=== PATIENT | female | born 1935 | race Caucasian/White ===

== ENCOUNTER 2022-06-16 13:17 | Inpatient (IN) | payer MEDICARE, SELFPAY ==
[2022-06-16] VITALS (18 sets, daily range): BP systolic 98–117; BP diastolic 59–85; PULSE 72–140; RESP 15–25; TEMP 36–36.9; O2SAT 93–98; BMI 22.7; BMI 21.7
--- NOTE | 2022-06-16 13:22 | EKG12_ITS ---
Test Reason : STROKE TEAM Blood Pressure : / mmHG Vent. Rate : 117 BPM Atrial Rate : 357 BPM P-R Int : 000 ms QRS Dur : 076 ms QT Int : 318 ms P-R-T Axes : 000 010 -79 degrees QTc Int : 443 ms Atrial flutter with variable A-V block Nonspecific ST and T wave abnormality Abnormal ECG Confirmed by TATA WOOD, TOMASA ([id number]), society editor PANCHO PEREZ ([id number]) on 06/17/2022 2:40:15 PM Referred By: Confirmed By:TOMASA PAYTON MD
--- NOTE | 2022-06-16 13:22 | CT_ITS ---
We are attempting to reach an attending provider to discuss findings. An addendum with communication details will be sent when the communication is complete. STUDY: CTA HEAD AND NECK WITH CONTRAST REASON FOR EXAM: Female, 86 years old. Neuro deficit, acute, stroke suspected RADIATION DOSAGE (If Supplied By Facility): CTDIvol = ( 28.91 ) mGy, DLP = ( 596.70 ) mGycm TECHNIQUE: CT angiography was performed with a multi-detector CT scanner. Data acquisition was obtained from the skull base through the vertex following intravenous administration of IV 100mL Isovue-370. MIP images were reconstructed from the axial data set. Post-processing of the angiographic images was performed, with multiplanar reformation and 3D reconstruction. Individualized dose optimization techniques were used for this CT. COMPARISON: No relevant priors. FINDINGS: Normal bilateral petrous carotid arteries. Normal right cavernous carotid artery with a normal supraclinoid bifurcation. Normal left cavernous carotid artery with a normal supraclinoid bifurcation. Normal right A1 segment of the anterior cerebral artery. Normal left A1 segment of the anterior cerebral artery. Normal intact anterior communicating artery (ACOM). Normal bilateral A2 segments of the anterior cerebral arteries. Normal right M and M2 segments of the middle cerebral arteries, with a normal M1 bifurcation. Normal left M1 and M2 segments of the middle cerebral arteries, with a normal M1 bifurcation. No visible right posterior communicating artery (PCOM). No visible left posterior communicating artery (PCOM). Normal bilateral codominant vertebral arteries. Normal basilar artery with a normal basilar bifurcation. The visualized bilateral superior cerebellar (SCA) arteries are normal. Normal bilateral P1, P2 and visualized P3 segments of the posterior cerebral arteries. There is no demonstrated aneurysm of the [place]. There is no demonstrated abnormality of the visualized brain. AORTIC ARCH: Normal visualized aortic arch. Normal origins of the brachiocephalic, left common carotid, and left subclavian arteries. RIGHT CAROTID ARTERIES: Normal right common carotid artery (CCA). Normal right carotid bulb. Normal origin of the right internal carotid (ICA) artery without a hemodynamically significant stenosis. Normal visualized cervical portion of the right internal carotid artery. Normal origin of the right external carotid artery (ECA). LEFT CAROTID ARTERIES: Normal left common carotid artery (CCA). Normal left carotid bulb. Normal origin of the left internal carotid (ICA) artery without a hemodynamically significant stenosis. Normal visualized cervical portion of the left internal carotid artery. Normal origin of the left external carotid artery (ECA). VERTEBRAL ARTERIES: Normal bilateral vertebral arteries. CT/STROKE CTA Head AND Neck W/Con IMPRESSION: Normal CTA Head and neck with contrast. COMMENT: Incidental prominent mucous retention cyst in the left maxillary sinus and tiny hypodense nodule in the right thyroid lobe. No follow-up is needed. Electronically Signed: Krael Espana MD at 13:48 EST ,
--- NOTE | 2022-06-16 13:22 | CT_ITS ---
EXAM: CT HEAD WITHOUT INTRAVENOUS CONTRAST CLINICAL INDICATION: Neuro deficit, acute, stroke suspected TECHNIQUE: Multiple axial images were obtained of the head without intravenous contrast. This CT exam was performed using one or more of the following dose reduction techniques: automated exposure control, adjustment of the mA and/or kV according to patient size, and/or use of iterative reconstruction technique. This report was created using [id number] report generation technology. RADIATION DOSE: CTDIvol = 44.99 mGy, DLP = 846.73 mGy-cm COMPARISON: MRI brain without contrast 09/25/2015. FINDINGS: BRAIN AND EXTRA-AXIAL SPACES: Focal encephalomalacia in the right parietal lobe corresponding to the tract of the shunt tube. Hypodensities in the white matter of both cerebral hemispheres are chronic white matter ischemic changes. No intra- or extra-axial hemorrhage. BONES/JOINTS: Unremarkable. No discrete lytic or blastic abnormalities. SINUSES: Unremarkable as visualized. Clear. MASTOID AIR CELLS: Unremarkable. Clear. ORBITS: Visualized globes, extraocular muscles, optic nerves and retrobulbar fat appear unremarkable. TUBES, LINES AND DEVICES: Right parietal MICROSOFT OFFICE INSTRUCTOR shunt crosses the midline and terminates in the frontal horn of the left lateral ventricle near the foramen of bone growth. CT/STROKE Brain/Head without Cont IMPRESSION: 1. No CT evidence of intracranial bleeding, acute ischemic infarct or acute intracranial abnormality. 2. Chronic white matter ischemic changes in both cerebral hemispheres without suspicious of MICROSOFT OFFICE INSTRUCTOR shunt malfunction. 3. Right parietal MICROSOFT OFFICE INSTRUCTOR shunt placement is the only new finding since MRI of brain of 09/25/2015. N.B. : The above Results were Read Back by Karel Espana MD to Julio Cesar Mcguire MD, MD, and understanding confirmed on 06/16/2022 13:41:21 (ET). Electronically Signed: Karel sEpana MD at 13:43 EST ,
[2022-06-16 13:30] LABS: Absolute Lymphocyte Count 1.25 X10^3/uL (0.83-4.51); Absolute Neutrophil Count 3.9 X10^3/uL (2.0-7.7); Basophil# 0.02 X10^3/uL; Basophil% 0.3 % (0-1); Eosinophil# 0.22 X10^3/uL; Eosinophils% 3.6 % (0-5); Hematocrit 38.1 % (37-47); Hemoglobin 12.4 g/dL (12.0-15.0); Lymphocyte # 1.25 X10^3/ul (0.83-4.51); Lymphocyte % 20.7 % (19-41); Mean Corp Hgb Conc 32.5 g/dL (32-36); Mean Corpuscular Hgb 30.9 pg (27.0-32.0); Mean Platelet Vol. 11.6 fl (6.2-12.0); Monocyte# 0.66 X10^3/uL; Monocyte% 10.9 % (0-10); NRBC Flagged by Analyzer 0 % (0-5); Neutrophil # 3.87 X10^3/uL (2.7-7.7); Neutrophil % 64.2 % (47-70); Platelet Count 264 K/mm3 (150-450); RBC Distribution Width CV 13.4 % (11.6-14.6); Red Blood Count 4.01 M/mm3 (4.2-5.4)
--- NOTE | 2022-06-16 13:31 | CM.ED ---
SW Note Referral Source: Case Find Referral Reason: Stroke alert SW responded to stroke alert. SW met with and provided emotional support. SW remains available if needs arise. Plan: Emotional support Amy PASTOR
[2022-06-16 13:38] LABS: International Normalized Ratio 1.2; Partial Thromboplast Time 32.2 Seconds (24.1-36.2); Prothrombin Time (Protime)PT. 14.8 SECONDS (11.7-14.9)
[2022-06-16 13:51] LABS: Anion Gap 7 (5-15); BUN 9 mg/dL (7-18); BUN/Creat Ratio 12.6 RATIO (10-20); Chloride 110 mmol/L (98-107); Creatinine, Serum 0.72 mg/dL (0.55-1.02); EST Glomerular Filtration Rate 82 mL/min (>60); Est Glom Filt Rate - Afr Amer 100 mL/min (>60); Estimated Creatinine Clearance 40.72 ml/min; Glucose 86 mg/dL (74-106); Potassium 3.6 mmol/L (3.5-5.1); Sodium Level 144 mmol/L (136-145); Troponin-I HS 10 pg/mL (3.0-54.0)
[2022-06-16 14:26] LABS: Bacteria 0 SEEN /hpf (None Seen); Mucous, Urine 0 SEEN /hpf (<or=2+); Red Blood Cells-Urine 0 SEEN /hpf (0-5); Squamous Epithelial Cells - UA 0 SEEN /hpf (5-10); White Blood Cells 0 SEEN /hpf (0-5)
--- NOTE | 2022-06-16 14:30 | RAD_ITS ---
EXAM: XR CHEST, 1 VIEW CLINICAL INDICATION: Neuro deficit, acute, stroke suspected TECHNIQUE: Frontal view of the chest. This report was created using GoGoPin report generation technology. COMPARISON: 02/19/2014. FINDINGS: LUNGS AND PLEURAL SPACES: No suspicious infiltrates. No pneumothorax. No effusion. HEART: Unremarkable. Cardiac silhouette not enlarged. MEDIASTINUM: Central airways and mediastinal contour are unremarkable. BONES/JOINTS: Bone spur in the inferomedial aspect of the right humeral head has increased in size. SOFT TISSUES: Unremarkable. TUBES, LINES AND DEVICES: TECHNOLOGY DIRECTOR shunt portion within the right chest is intact. RAD/Chest 1 View IMPRESSION: 1. No acute findings in the chest. 2. TECHNOLOGY DIRECTOR shunt in the right chest and increased bone spur in the right humeral head are new findings from 02/19/2014. Electronically Signed: Karel Espana MD at 14:46 EST ,
[2022-06-16 14:33] LABS: Color, Urine Yellow (Yellow); Glucose, Dipstick Normal (Normal); Ketone-Dipstick 5 mg/dl (Negative); Leukocyte Esterase-Dipstick Negative /ul (Negative); Nitrite-Dipstick Negative (Negative); Occult Blood-Urine 10 /ul (Negative); Protein-Dipstick Negative (Negative); Specific Gravity, Urine 1.005 (1.002-1.030); Urine Bilirubin Dipstick Negative (Negative); Urine Clarity Clear (Clear); Urine Urobilinogen Normal (Normal)
[2022-06-16 14:53] LABS: Valproic Acid (Depakene) Level 54 ug/mL (50-100)
[2022-06-16 14:54] LABS: Lactic Acid 1.2 mmol/L (0.4-1.9)
--- NOTE | 2022-06-16 15:31 | EDS_ITS ---
HPI History of Present Illness Chief Complaint: Stroke Alert Informant: patient, spouse/S.O. and EMS Narrative Narrative: 86-year-old female with a history of atrial fibrillation presenting as a prehospital stroke team. Was noted by her that he found her on the floor this morning around 8:00. He states that she does have a seizure disorder and its not uncommon for her to take several hours to come back around. Unfortunately she was not coming back around and she was not moving her left arm. Patient is not reportedly on any blood thinners. She went to bed last night around 2200 and was reportedly fine. EMS notes that she is moving both of her legs. Reportedly is taking valproic acid and Keppra. She was recently admitted for an extended amount of time to long-term. [facility] Medical History Contraction, premature ventricular Depression Generalized osteoarthritis GERD (gastroesophageal reflux disease) HLD (hyperlipidemia) Malaise and fatigue Palpitations Paroxysmal atrial fibrillation Premature atrial contractions Pure hypercholesterolemia Home Medications hydroxyzine HCl 10 mg tablet 10 mg PO PRN PRN Itching 02/26/14 [History Last Taken 02/26/14] memantine 10 mg tablet 10 mg PO BID 04/27/16 [History Last Taken Unknown] aspirin 325 mg tablet 325 mg PO QDAY PRN 12/29/17 [History Last Taken Unknown] donepezil 10 mg tablet 10 mg PO DAILY 01/23/19 [History Last Taken Unknown] levetiracetam 500 mg tablet,extended release 24 hr 1,500 mg PO DAILY 01/23/19 [History Last Taken Unknown] melatonin 10 mg capsule 10 mg PO HS 01/23/19 [History Last Taken Unknown] mirtazapine 15 mg tablet 15 mg PO QHS PRN 01/23/19 [History Last Taken Unknown] diltiazem HCl 120 mg capsule,extended release 24 hr 120 mg PO QHS #90 caps 04/17/19 [Rx Last Taken Unknown] Allergy/AdvReac Type Severity Reaction Status Date / Time adhesive AdvReac Unknown Verified 06/16/22 14:18 Family History Father Cancer Mother No problems noted. Surgical History History of carpal tunnel release History of cholecystectomy History of hip surgery History of hysterectomy History of left heart catheterization (LHC) (~02/27/14) History of right hip replacement Intracranial shunt Social History Smoking Status: Never smoker alcohol intake: never caffeine: No what type of physical activity do you participate in: none ROS ROS ED Constitutional Constitutional ED: Denies chills or weight loss Eyes Eyes: Denies change in vision or diplopia ENT ENT ED: Denies ear pain, rhinorrhea or sore throat Cardiovascular Cardiovascular: Reports palpitations and racing heartbeat; Denies chest pain or orthopnea Respiratory/Chest Respiratory/Chest: Denies cough, dyspnea or orthopnea Gastrointestinal Gastrointestinal: Denies abdominal pain, diarrhea, nausea or vomiting Genitourinary Genitourinary ED: Denies dysuria, hematuria or urinary frequency Musculoskeletal Musculoskeletal: Denies arthralgias or myalgias Integumentary Denies abscess or rash Neurologic Neurologic: Reports headache(s) and weakness Psychiatric Psychiatric: Denies anxiety, depression, suicidal ideation or suicidal thoughts Endocrine Endocrinology: Denies polydipsia, polyphagia or polyuria Allergic/Immunologic Allergic/Immunologic ED: Denies mouth swelling, tongue swelling or urticaria EXAM Physical Exam Const Vital Signs: 06/16/22 13:19 06/16/22 13:22 06/16/22 13:52 Temperature 97.2 F L Temperature Source Temporal Pulse Rate 126 H 119 H Respiratory Rate 17 15 Blood Pressure 111/72 117/75 Blood Pressure Mean 85 89 Pulse Ox 96 97 97 Oxygen Delivery Method Room Air Room Air Room Air 06/16/22 14:22 06/16/22 14:52 Temperature Temperature Source Pulse Rate 126 H 102 H Respiratory Rate 22 H 21 H Blood Pressure 112/62 104/68 Blood Pressure Mean 78 80 Pulse Ox 97 98 Oxygen Delivery Method Room Air Positive well nourished and well developed General Appearance ED: well developed HEENT Reports normocephalic, head/scalp atraumatic and moist mucous membranes Eyes PERRL and EOMs intact bilaterally Neck no lymphadenopathy, supple and no JVD Resp normal respiratory effort and clear to auscultation bilaterally Cardio no murmurs Rate: tachycardic Rhythm: abnormal rhythm irregularly irregular GI normal to inspection, nondistended, normoactive bowel sounds and non-tender Palpation: soft Back/Spine no CVA tenderness and normal ROM Extremity normal to inspection General Extremety ED: Negative for edema General Extremity: Negative for edema Neuro Neuro Narrative: Patient has evidence of a left facial droop. She is not moving the left arm. She appears to have some extinction to the left. Sensorium / Orientation: alert Psych mental status grossly normal Mood & Affect: Negative for depressed or tearful Skin no rashes or lesions noted and no wounds MDM MDM MDM Narrative Medical decision making narrative: Essentially this is a wake-up stroke. There is no LVO and I do not feel that she is a candidate for tPA. My interpretation of the chest x-ray is no acute process. She will be given some diltiazem for rate control. I did speak with [facility] neurology. They are in agreement with admission. I will speak with our hospitalist. Lab Data Attestation: I reviewed the patient's lab results. Labs: Laboratory Results - last 24 hr 06/16/22 06/16/22 06/16/22 13:10 13:10 13:10 WBC 6.0 RBC 4.01 L Hgb 12.4 Hct 38.1 MCV 95.0 MCH 30.9 MCHC 32.5 RDW Std Deviation 47.0 H RDW Coeff of Karon 13.4 Plt Count 264 MPV 11.6 Immature Gran % (Auto) 0.300 Neut % (Auto) 64.2 Lymph % (Auto) 20.7 [place] % (Auto) 10.9 H Eos % (Auto) 3.6 Baso % (Auto) 0.3 Absolute Neuts (auto) 3.9 Absolute Lymphs (auto) 1.25 Nucleated RBC % 0 PT 14.8 INR 1.2 APTT 32.2 Sodium 144 Potassium 3.6 Chloride 110 H Carbon Dioxide 27.0 Anion Gap 7 BUN 9 Creatinine 0.72 Estim Creat Clear Calc 40.72 Est GFR (MDRD) Af Amer 100 Est GFR (MDRD) Non-Af 82 BUN/Creatinine Ratio 12.6 Glucose 86 Lactic Acid Calcium 9.0 Troponin I High Sens 10 Urine Color Urine Clarity Urine pH Ur Specific [place] Urine Protein Urine Glucose (UA) Urine Ketones Urine Occult Blood Urine Nitrite Urine Bilirubin Urine Urobilinogen Ur Leukocyte Esterase Urine RBC Urine WBC Ur Squamous Epith Cells Urine Bacteria Urine Mucus Valproic Acid 06/16/22 06/16/22 06/16/22 14:00 14:15 14:15 WBC RBC Hgb Hct MCV MCH MCHC RDW Std Deviation RDW Coeff of Karon Plt Count MPV Immature Gran % (Auto) Neut % (Auto) Lymph % (Auto) [place] % (Auto) Eos % (Auto) Baso % (Auto) Absolute Neuts (auto) Absolute Lymphs (auto) Nucleated RBC % PT INR APTT Sodium Potassium Chloride Carbon Dioxide Anion Gap BUN Creatinine Estim Creat Clear Calc Est GFR (MDRD) Af Amer Est GFR (MDRD) Non-Af BUN/Creatinine Ratio Glucose Lactic Acid 1.2 Calcium Troponin I High Sens Urine Color Yellow Urine Clarity Clear Urine pH 7.0 Ur Specific [place] 1.005 Urine Protein Negative Urine Glucose (UA) Normal Urine Ketones 5 H Urine Occult Blood 10 H Urine Nitrite Negative Urine Bilirubin Negative Urine Urobilinogen Normal Ur Leukocyte Esterase Negative Urine RBC 0 SEEN Urine WBC 0 SEEN Ur Squamous Epith Cells 0 SEEN Urine Bacteria 0 SEEN Urine Mucus 0 SEEN Valproic Acid 54 Radiography Diagnostic Testing: Clinical Impression(s) from Imaging Studies Brain CT 06/16/22 13:22 IMPRESSION: 1. No CT evidence of intracranial bleeding, acute ischemic infarct or acute intracranial abnormality. 2. Chronic white matter ischemic changes in both cerebral hemispheres without suspicious of JOURNEYMAN LEVEL ACOUSTIC ANALYST shunt malfunction. 3. Right parietal JOURNEYMAN LEVEL ACOUSTIC ANALYST shunt placement is the only new finding since MRI of brain of 09/25/2015. N.B. : The above Results were Read Back by Karel Espana MD to Julio Cesar Mcguire MD, MD, and understanding confirmed on 06/16/2022 13:41:21 (ET). Electronically Signed: Karel Espana MD at 13:43 EST , ADDENDUM: 06/16/22 1350 IMPRESSION: 1. No CT evidence of intracranial bleeding, acute ischemic infarct or acute intracranial abnormality. 2. Chronic white matter ischemic changes in both cerebral hemispheres without suspicious of JOURNEYMAN LEVEL ACOUSTIC ANALYST shunt malfunction. 3. Right parietal JOURNEYMAN LEVEL ACOUSTIC ANALYST shunt placement is the only new finding since MRI of brain of 09/25/2015. N.B. : The above Results were Read Back by Karel Espana MD to Julio Cesar Mcguire MD, MD, and understanding confirmed on 06/16/2022 13:41:21 (ET). Electronically Signed: Karel Espana MD at 13:43 EST , Head/Neck CTA 06/16/22 13:22 IMPRESSION: Normal CTA Head and neck with contrast. COMMENT: Incidental prominent mucous retention cyst in the left maxillary sinus and tiny hypodense nodule in the right thyroid lobe. No follow-up is needed. Electronically Signed: Karel Espana MD at 13:48 EST , ADDENDUM: 06/16/22 1400 IMPRESSION: Normal CTA Head and neck with contrast. COMMENT: Incidental prominent mucous retention cyst in the left maxillary sinus and tiny hypodense nodule in the right thyroid lobe. No follow-up is needed. N.B. : The above Results were Read Back by Karel Espana MD to Julio Cesar Chen MD, and understanding confirmed on 06/16/2022 13:53:17 (ET). Electronically Signed: Karel Espana MD at 13:48 EST , Chest X-Ray 06/16/22 14:30 IMPRESSION: 1. No acute findings in the chest. 2. JOURNEYMAN LEVEL ACOUSTIC ANALYST shunt in the right chest and increased bone spur in the right humeral head are new findings from 02/19/2014. Electronically Signed: Karel Espana MD at 14:46 EST , EKG Initial EKG: Attestation: I personally reviewed and interpreted this EKG as follows: Comments: Atrial fibrillation with rapid ventricular response at a rate of 117 bpm Critical Care Time Critical Care Time: Yes Critical care time (excluding procedures): 30-74 minutes (35 min), Including time spent:, Discussing w/Patient &/or Family/Surveillance Specialist, Discussing w/Co nsultants, Arranging Admission or Transfer and Performing Direct Patient Care at Bedside Discharge Plan Dx/Rx/DC Orders Clinical Impression: Paroxysmal atrial fibrillation, Acute stroke due to ischemia, Pure hypercholesterolemia Disposition Disposition: Acute Care Hospital [facility] NIHSS NIHSS 1a. Level of Consciousness: Alert; keenly responsive 1b. LOC Questions: Answers one question correctly. 1c. LOC Commands: Performs one task correctly. 2. Best Gaze: Normal 3. Visual: No visual loss 4. Facial Palsy: Partial paralysis (total or near-total paralysis of lower face) 5a. Left Arm: No effort against gravity; arm falls 5b. Right Arm: No drift; arm holds 90 (or 45) degrees for full 10 seconds 6a. Left Leg: No drift; leg holds 30-degree position for full 5 seconds 6b. Right Leg: No drift; leg holds 30-degree position for full 5 seconds 7. Limb Ataxia: Present in 1 limb 8. Sensory: Normal; no sensory loss 9. Best Language: [id number] aphasia; 10. Dysarthria: [id number] dysarthria; 11. Extinction and Inattention: Visual, tactile, auditory, spatial, or personal inattention Total: 11
[2022-06-16] MEDS: dilTIAZem 25 MG/5 ML Vial 10 MG IV BOLUS (15:52)
--- NOTE | 2022-06-16 15:54 | HP.PCM.HOS_ITS ---
HPI - General General Date of Admission: 06/16/22 Date of Service: 06/16/22 Chief Complaint: altered mental status HPI Narrative BASHIR AMANDA, is a 86 F with a PMH as outlined who presents via the ED on 06/16/2022 with a complaint of altered mental status. History was taken from as patient was unable to communicate. found her on the floor this morning around 8 AM. She does have a history of seizure disorder and says usually after his seizures she is a bit confused so he found a thought she had had a seizure was having her usual postictal drowsiness. He therefore put her back in bed. However after about 3 hours, patient was still not becoming responsive and was uncommunicative so he called the EMS and she was brought in. She was unable to speak and so unable to do review of systems. She does have a history of A. fib but says about 2 years ago, the a lead pl sql developer Dr. Lin told him that she did not need to continue following up with cardiology because no A. fib had any detected. She is only on aspirin and is not on any other anticoagulant. Vitals in the ED were blood pressure of 98/65 with pulse rate of 115 and respiratory rate of 25. She was saturating at 98% on room air. CBC and BMP were unremarkable. EKG showed A. fib and her heart rate fluctuated between 110 and 140 on the monitor. Urinalysis showed no evidence of UTI. 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 CT of the head and neck showed no hemodynamically significant stenosis. She has been admitted to be managed for probable acute CVA due to A. fib. [facility] Medical History (Updated 06/16/22 @ 17:19 by Juju Wilhelm) Alzheimer disease Colitis Contraction, premature ventricular Depression Generalized osteoarthritis GERD (gastroesophageal reflux disease) HLD (hyperlipidemia) Malaise and fatigue Palpitations Paroxysmal atrial fibrillation Premature atrial contractions Pure hypercholesterolemia Home Medications hydroxyzine HCl 10 mg tablet 10 mg PO DAILY PRN Anxiety 02/26/14 [History Last Taken 06/15/22] memantine 10 mg tablet 10 mg PO BID ALZHEIMERS 04/27/16 [History Last Taken 06/15/22] donepezil 10 mg tablet 10 mg PO DAILY ALZHEIMERS 01/23/19 [History Last Taken 06/15/22] melatonin 10 mg capsule 10 mg PO HS SLEEP 01/23/19 [History Last Taken 06/15/22] mirtazapine 15 mg tablet 15 mg PO QHS PRN Anxiety 01/23/19 [History Last Taken Unknown] diphenoxylate-atropine 2.5 mg-0.025 mg tablet 1 tab PO DAILY PRN IBS 06/16/22 [History Last Taken 06/15/22] diphenoxylate-atropine 2.5 mg-0.025 mg tablet 2 tab PO QPM PRN IBS 06/16/22 [History Last Taken 06/15/22] divalproex 250 mg tablet,delayed release 250 mg PO BID SEIZURES 06/16/22 [History Last Taken 06/15/22] levetiracetam 1,000 mg tablet 1,000 mg PO Q12H SEIZURES 06/16/22 [History Last Taken 06/15/22] omeprazole 20 mg capsule,delayed release 20 mg PO QODAY GERD 06/16/22 [History Last Taken 06/15/22] Allergy/AdvReac Type Severity Reaction Status Date / Time adhesive AdvReac Unknown Verified 06/16/22 14:18 Family History Father Cancer Mother No problems noted. Surgical History History of carpal tunnel release History of cholecystectomy History of hip surgery History of hysterectomy History of left heart catheterization (LHC) (~02/27/14) History of right hip replacement Intracranial shunt Social History Smoking Status: Never smoker alcohol intake: never caffeine: No what type of physical activity do you participate in: none ROS Review of Systems ROS Unobtainable: due to encephalopathy Vital Signs Vital Signs Vital Signs: 06/16/22 13:19 06/16/22 13:22 06/16/22 13:52 Temperature 97.2 F L Temperature Source Temporal Pulse Rate 126 H 119 H Respiratory Rate 17 15 Blood Pressure 111/72 117/75 Blood Pressure Mean 85 89 Pulse Ox 96 97 97 Oxygen Delivery Method Room Air Room Air Room Air 06/16/22 14:22 06/16/22 14:52 06/16/22 15:00 Temperature Temperature Source Pulse Rate 126 H 102 H 128 H Respiratory Rate 22 H 21 H 18 Blood Pressure 112/62 104/68 112/69 Blood Pressure Mean 78 80 83 Pulse Ox 97 98 98 Oxygen Delivery Method Room Air 06/16/22 15:30 Temperature Temperature Source Pulse Rate 115 H Respiratory Rate 25 H Blood Pressure 98/65 Blood Pressure Mean 76 Pulse Ox 98 Oxygen Delivery Method Room Air Weight Weight: 145 lb 1.027 oz Body Mass Index (BMI) 22.7 Physical Exam Const alert Constitutional Narrative: lethargic, frail Orientation / Consciousness: confused and disoriented HEENT normocephalic and head/scalp atraumatic Mouth: moist mucous membranes abnormal parched Eyes PERRL Eyes Narrative: patient unable to track finger with her eyes; eyes fixed in right lateral conjugate gaze Neck no lymphadenopathy and supple Resp Resp Narrative: diminished breath sounds bibasally, no wheezes or crackles. On room air. Cardio S1 normal heart sound, S2 normal heart sound and no murmurs Cardio Narrative: afib, tachycardia GI normal to inspection, nondistended, normoactive bowel sounds, soft to palpation, non-tender and non-distended Extremity normal to inspection and no clubbing, cyanosis or edema Neuro Neuro Narrative: left facial nerve palsy, expressive aphasia, eyes fixed in right lateral conjugate gaze, unable to track with eyes, LUE power is 2/5, LLE power is 2/5 Results Lab / Micro Data Result Diagrams: 06/16/22 13:10 06/16/22 13:10 Labs: Laboratory Results - last 24 hr 06/16/22 13:10: WBC 6.0, RBC 4.01 L, Hgb 12.4, Hct 38.1, MCV 95.0, MCH 30.9, MCHC 32.5, RDW Std Deviation 47.0 H, RDW Coeff of Karon 13.4, Plt Count 264, MPV 11.6, Immature Gran % (Auto) 0.300, Neut % (Auto) 64.2, Lymph % (Auto) 20.7, [place] % (Auto) 10.9 H, Eos % (Auto) 3.6, Baso % (Auto) 0.3, Absolute Neuts (auto) 3.9, Absolute Lymphs (auto) 1.25, Nucleated RBC % 0 06/16/22 13:10: PT 14.8, INR 1.2, APTT 32.2 06/16/22 13:10: Sodium 144, Potassium 3.6, Chloride 110 H, Carbon Dioxide 27.0, Anion Gap 7, BUN 9, Creatinine 0.72, Estim Creat Clear Calc 40.72, Est GFR (MDRD) Af Amer 100, Est GFR (MDRD) Non-Af 82, BUN/Creatinine Ratio 12.6, Glucose 86, Calcium 9.0, Troponin I High Sens 10 06/16/22 14:00: Urine Color Yellow, Urine Clarity Clear, Urine pH 7.0, Ur Specific [place] 1.005, Urine Protein Negative, Urine Glucose (UA) Normal, Urine Ketones 5 H, Urine Occult Blood 10 H, Urine Nitrite Negative, Urine Bilirubin Negative, Urine Urobilinogen Normal, Ur Leukocyte Esterase Negative, Urine RBC 0 SEEN, Urine WBC 0 SEEN, Ur Squamous Epith Cells 0 SEEN, Urine Bacteria 0 SEEN, Urine Mucus 0 SEEN 06/16/22 14:15: Valproic Acid 54 06/16/22 14:15: Lactic Acid 1.[address] 06/16/22 13:22 IMPRESSION: 1. No CT evidence of intracranial bleeding, acute ischemic infarct or acute intracranial abnormality. 2. Chronic white matter ischemic changes in both cerebral hemispheres without suspicious of SOFTWARE DEVELOPMENT ADVISOR shunt malfunction. 3. Right parietal SOFTWARE DEVELOPMENT ADVISOR shunt placement is the only new finding since MRI of brain of 09/25/2015. N.B. : The above Results were Read Back by Karel Espana MD to Julio Cesar Mcguire MD, MD, and understanding confirmed on 06/16/2022 13:41:21 (ET). Electronically Signed: Karel Espana MD at 13:43 EST , ADDENDUM: 06/16/22 1350 IMPRESSION: 1. No CT evidence of intracranial bleeding, acute ischemic infarct or acute intracranial abnormality. 2. Chronic white matter ischemic changes in both cerebral hemispheres without suspicious of SOFTWARE DEVELOPMENT ADVISOR shunt malfunction. 3. Right parietal SOFTWARE DEVELOPMENT ADVISOR shunt placement is the only new finding since MRI of brain of 09/25/2015. N.B. : The above Results were Read Back by Karel Espana MD to Julio Cesar Mcguire MD, MD, and understanding confirmed on 06/16/2022 13:41:21 (ET). Electronically Signed: Karel Espana MD at 13:43 EST , Head/Neck CTA 06/16/22 13:22 IMPRESSION: Normal CTA Head and neck with contrast. COMMENT: Incidental prominent mucous retention cyst in the left maxillary sinus and tiny hypodense nodule in the right thyroid lobe. No follow-up is needed. Electronically Signed: Karel Espana MD at 13:48 EST , ADDENDUM: 06/16/22 1400 IMPRESSION: Normal CTA Head and neck with contrast. COMMENT: Incidental prominent mucous retention cyst in the left maxillary sinus and tiny hypodense nodule in the right thyroid lobe. No follow-up is needed. N.B. : The above Results were Read Back by Karel Espana MD to Julio Cesar Chen MD, and understanding confirmed on 06/16/2022 13:53:17 (ET). Electronically Signed: Karel Espana MD at 13:48 EST Reading Location ID and State: [facility] / [place] , Service support , Chest X-Ray 06/16/22 14:30 IMPRESSION: 1. No acute findings in the chest. 2. SOFTWARE DEVELOPMENT ADVISOR shunt in the right chest and increased bone spur in the right humeral head are new findings from 02/19/2014. Electronically Signed: Karel Espana MD at 14:46 EST , Assessment & Plan Assessment/Plan (1) Paroxysmal atrial fibrillation: (2) Acute stroke due to ischemia: PLAN: Plan #Acute ischemic CVA likely due to Afib * admit to PCU * patient is not a tPA candidate as she was found unresponsive for at least 3 hours before her admission * CT of the brain showed no evidence of ischemia, and CTA head and neck showed no hemodynamically signficant stenosis * EKG showed afib with poor rate control; not anticoagulated and is only on aspirin * start high intensity statin * continue aspirin and give plavix * get 2D echo * speech therapy and PT/OT consult * get MRI if her hip prosthesis and SOFTWARE DEVELOPMENT ADVISOR shunt are compatible with this * consult SOC neurology tomorrow once MRI is done * will need anticoagulation, but will need to ensure no hemorrhagic transformation prior to initiation of this. * keep NPO until she passes swallow evaluation #A. fib * does have a history of afib but not on any anticoagulant * HR poorly controlled * on cardizem; unable to take PO cardizem as she's NPO. IV lopressor prn. If she remains tachcyardic, low threshold for starting cardizem drip. 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 Code status: DNRCCA no intubation * Patient's counseled extensively about different types of CODE STATUS including full code, DNR CCA and DNR CCA. Patient's says she wants to be DNRCCA no intubation. * Total [id number]-[id number] time 17 minutes. Charges/Coding Visit Charges Inpatient E&M: 13347 Init Hosp L3 Procedures Hospitalists Procedures: 59546 Advncd Care Plan 30 Min
--- NOTE | 2022-06-16 17:35 | ECHOD_ITS ---
Reason For Study: TIA./CVA Procedure This was a 2D Doppler, Color Flow transthoracic echocardiogram. The study was technically difficult. PT was combative at times and constantly trying to get out of bed. Exam performed portable in patient room. Left Ventricle Normal LV size. The estimated ejection fraction is 40-45 %. Unable to assess diastolic function based on available data. Right Ventricle Normal right ventricle. Atria The left and right atria are normal. Mitral Valve Mild (1+) mitral valve insufficiency. Tricuspid Valve Trivial tricuspid valve insufficiency. Unable to estimate RV systolic pressure due to insufficient tricuspid regurgitant envelope. Aortic Valve Aortic sclerosis, no stenosis. Pulmonic Valve The pulmonic valve is not well visualized. Great Vessels Normal sized aortic root. Pericardium/Pleural No pericardial effusion. MMode/2D Measurements & Calculations LVIDd: 4.4 cm IVSd: 0.87 cm Ao root diam: 2.9 cm LVIDs: 3.3 cm LVPWd: 0.80 cm LA dimension: 3.2 cm FS: 24.5 % LAV(MOD-bp): 52.2 ml LA A4 area: 19.2 cm2 RA A4 area: 14.7 cm2 LAV(MOD-bp) Indexed: 30.2 ml/m2 LAV(MOD-sp2): 50.0 ml LAV(MOD-sp4): 54.3 ml Doppler Measurements & Calculations Ao V2 max: 113.4 cm/sec LV V1 max: 61.8 cm/sec PA V2 max: 91.6 cm/sec Ao max P.1 mmHg LV V1 max P.5 mmHg TR max ozzy: 219.8 cm/sec TR max P.3 mmHg ECHO/Echo Complete Interpretation Summary The estimated ejection fraction is 40-45 %. Mild (1+) mitral valve insufficiency. Aortic sclerosis, no stenosis. Ordering Physician: Anastasiya Horvath Referring Physician: Herminio Ford Performed By: Shannon Jones, JUSTYN, RVT
[2022-06-16] MEDS: 0.9% Saline Lock 10 ML Syringe IV ×2 (18:56→21:20)
[2022-06-16] MEDS: 0.9% Normal Saline 1,000 ML 75 ML IV (18:56)
[2022-06-16] MEDS: dilTIAZem 25 MG/5 ML Vial 5 MG IV BOLUS (21:18)
[2022-06-16] MEDS: levETIRAcetam IV 1,000 MG/100 ML BAG 400 MG IV (21:28)
[2022-06-16 22:16] LABS: Magnesium 2.1 mg/dL (1.6-2.6)
--- NOTE | 2022-06-16 22:26 | NURSING ---
Pt brought in pt's living will card, this RN made a copy of the document and placed copy in pt's chart.
[2022-06-16] MEDS: Metoprolol Tartrate 5 MG/5 ML Vial IV (23:28)
[2022-06-17] VITALS (23 sets, daily range): BP systolic 100–176; BP diastolic 51–121; PULSE 46–144; RESP 14–19; TEMP 36.2–37.2; O2SAT 89–99; BMI 21.7
[2022-06-17] MEDS: 0.9% Saline Lock 10 ML Syringe IV (02:57)
[2022-06-17 05:07] LABS: Absolute Lymphocyte Count 1.55 X10^3/uL (0.83-4.51); Absolute Neutrophil Count 3.3 X10^3/uL (2.0-7.7); Basophil# 0.02 X10^3/uL; Basophil% 0.3 % (0-1); Eosinophil# 0.19 X10^3/uL; Eosinophils% 3.2 % (0-5); Hematocrit 37.2 % (37-47); Hemoglobin 12.1 g/dL (12.0-15.0); Lymphocyte # 1.55 X10^3/ul (0.83-4.51); Lymphocyte % 26.5 % (19-41); Mean Corp Hgb Conc 32.5 g/dL (32-36); Mean Corpuscular Hgb 30.6 pg (27.0-32.0); Mean Corpuscular Volume 94.2 fL (81-99); Monocyte# 0.75 X10^3/uL; Monocyte% 12.8 % (0-10); NRBC Flagged by Analyzer 0 % (0-5); Neutrophil # 3.33 X10^3/uL (2.7-7.7); Neutrophil % 56.9 % (47-70); Platelet Count 274 K/mm3 (150-450); RBC Distribution Width CV 13.3 % (11.6-14.6); RBC Distribution Width SD 46.3 fl (35.1-43.9); Red Blood Count 3.95 M/mm3 (4.2-5.4); White Blood Count 5.9 K/mm3 (4.4-11.0)
[2022-06-17 05:34] LABS: Anion Gap 11 (5-15); BUN 8 mg/dL (7-18); BUN/Creat Ratio 13.4 RATIO (10-20); Calcium,Total 8.6 mg/dL (8.5-10.1); Chloride 111 mmol/L (98-107); Cholesterol 149 mg/dL (200); EST Glomerular Filtration Rate 102 mL/min (>60); Est Glom Filt Rate - Afr Amer 123 mL/min (>60); Estimated Creatinine Clearance 40.72 ml/min; Glucose 78 mg/dL (74-106); High Density Lipoprotein 40 mg/dL; Potassium 3.6 mmol/L (3.5-5.1); Sodium Level 144 mmol/L (136-145); Triglycerides 93 mg/dL; Very Low Density Lipoprotein 19 mg/dL (5-40)
--- NOTE | 2022-06-17 05:55 | CT_ITS ---
STUDY: CT BRAIN WITHOUT CONTRAST REASON FOR EXAM: Female, 86 years old patient presents for evaluation of a stroke. RADIATION DOSAGE (If Supplied By Facility): CTDIvol = ( 44.99 ) mGy, DLP = ( 846.73 ) mGycm TECHNIQUE: Transaxial CT imaging of the brain was performed without administration of intravenous contrast material. Multiplanar reformations are submitted for interpretation. Individualized dose optimization techniques were used for this CT. COMPARISON: No relevant priors. FINDINGS: A ventriculostomy drain is present having been introduced via the posterior right parietal cranium. The tip of the catheter is in the body of the left lateral ventricle. Normal soft tissue structures. Normal calvarium. There is moderate cerebral atrophy with widening of the extra-axial spaces and ventricular dilatation. There are areas of decreased attenuation within the white matter tracts of the supratentorial brain, consistent with microvascular disease changes. Normal basal ganglia and thalami. Normal brainstem. Normal cerebellum. There is no intracranial hemorrhage. There is mild atherosclerotic calcification of the intracranial arteries. There is a left maxillary mucous retention cyst. Paranasal sinuses otherwise appear clear. CT/Brain/Head without Contrast IMPRESSION: 1. Chronic involutional changes of the brain. 2. No CT evidence of acute intracranial hemorrhage. Electronically Signed: Aixa Fischer MD at 5:59 EST ,
[2022-06-17] MEDS: Metoprolol Tartrate 5 MG/5 ML Vial IV (09:03)
[2022-06-17] MEDS: 0.9% Normal Saline 1,000 ML 75 ML IV (09:16)
--- NOTE | 2022-06-17 10:05 | PN.HOSP_ITS ---
Subjective Subjective Agitated and confused. Son and [id number] at bedside and report that she is worse from baseline. Reports she tends to be restless at home but this is significantly worse and her mental status is also worse. Patient herself has difficult time answering questions due to confusion Objective Data Objective Data Vital Signs: Vital Signs Temp Pulse Resp BP Pulse Ox O2 Del Method 97.7 F L 141 H 16 125/76 H 93 Room Air 06/17/22 07:46 06/17/22 09:03 06/17/22 07:46 06/17/22 07:46 06/17/22 08:41 06/17/22 08:41 Oxygen Delivery Method Room Air Weight: 62.959 kg Body Mass Index (BMI) 21.7 Intake & Output: Intake and Output for Last 24 Hours 06/15/22 06/16/22 06/17/22 23:59 23:59 23:59 Intake Total 100 / 100 1000 / 1000 Output Total 225 / 225 200 / 200 Balance -125 / -125 800 / 800 Lab / Micro Data Result Diagrams: 06/17/22 04:43 06/17/22 04:43 Labs: Laboratory Results - last 24 hr 06/16/22 13:10: WBC 6.0, RBC 4.01 L, Hgb 12.4, Hct 38.1, MCV 95.0, MCH 30.9, MCHC 32.5, RDW Std Deviation 47.0 H, RDW Coeff of Karon 13.4, Plt Count 264, MPV 11.6, Immature Gran % (Auto) 0.300, Neut % (Auto) 64.2, Lymph % (Auto) 20.7, [place] % (Auto) 10.9 H, Eos % (Auto) 3.6, Baso % (Auto) 0.3, Absolute Neuts (auto) 3.9, Absolute Lymphs (auto) 1.25, Nucleated RBC % 0 06/16/22 13:10: PT 14.8, INR 1.2, APTT 32.2 06/16/22 13:10: Sodium 144, Potassium 3.6, Chloride 110 H, Carbon Dioxide 27.0, Anion Gap 7, BUN 9, Creatinine 0.72, Estim Creat Clear Calc 40.72, Est GFR (MDRD) Af Amer 100, Est GFR (MDRD) Non-Af 82, BUN/Creatinine Ratio 12.6, Glucose 86, Calcium 9.0, Troponin I High Sens 10 06/16/22 13:10: Magnesium 2.1 06/16/22 14:00: Urine Color Yellow, Urine Clarity Clear, Urine pH 7.0, Ur Specific [place] 1.005, Urine Protein Negative, Urine Glucose (UA) Normal, Urine Ketones 5 H, Urine Occult Blood 10 H, Urine Nitrite Negative, Urine Bilirubin Negative, Urine Urobilinogen Normal, Ur Leukocyte Esterase Negative, Urine RBC 0 SEEN, Urine WBC 0 SEEN, Ur Squamous Epith Cells 0 SEEN, Urine Bacteria 0 SEEN, Urine Mucus 0 SEEN 06/16/22 14:15: Valproic Acid 54 06/16/22 14:15: Lactic Acid 1.2 06/17/22 04:43: WBC 5.9, RBC 3.95 L, Hgb 12.1, Hct 37.2, MCV 94.2, MCH 30.6, MCHC 32.5, RDW Std Deviation 46.3 H, RDW Coeff of Karon 13.3, Plt Count 274, MPV 11.0, Immature Gran % (Auto) 0.300, Neut % (Auto) 56.9, Lymph % (Auto) 26.5, [place] % (Auto) 12.8 H, Eos % (Auto) 3.2, Baso % (Auto) 0.3, Absolute Neuts (auto) 3.3, Absolute Lymphs (auto) 1.55, Nucleated RBC % 0 06/17/22 04:43: Sodium 144, Potassium 3.6, Chloride 111 H, Carbon Dioxide 22.0, Anion Gap 11, BUN 8, Creatinine 0.60, Estim Creat Clear Calc 40.72, Est GFR (MDRD) Af Amer 123, Est GFR (MDRD) Non-Af 102, BUN/Creatinine Ratio 13.4, Glucose 78, Calcium 8.6, Triglycerides 93, Cholesterol 149, LDL Cholesterol 90, VLDL Cholesterol 19, HDL Cholesterol 40 Radiography Diagnostic Testing: Radiology Impression Brain CT 06/16/22 13:22 IMPRESSION: 1. No CT evidence of intracranial bleeding, acute ischemic infarct or acute intracranial abnormality. 2. Chronic white matter ischemic changes in both cerebral hemispheres without suspicious of OPEN HEARTH FURNACE LABORER shunt malfunction. 3. Right parietal OPEN HEARTH FURNACE LABORER shunt placement is the only new finding since MRI of brain of 09/25/2015. N.B. : The above Results were Read Back by Karel Espana MD to Julio Cesar Mcguire MD, MD, and understanding confirmed on 06/16/2022 13:41:21 (ET). Electronically Signed: Karel Espana MD at 13:43 EST , ADDENDUM: 06/16/22 1350 IMPRESSION: 1. No CT evidence of intracranial bleeding, acute ischemic infarct or acute intracranial abnormality. 2. Chronic white matter ischemic changes in both cerebral hemispheres without suspicious of OPEN HEARTH FURNACE LABORER shunt malfunction. 3. Right parietal OPEN HEARTH FURNACE LABORER shunt placement is the only new finding since MRI of brain of 09/25/2015. N.B. : The above Results were Read Back by Karel Espana MD to Julio Cesar Mcguire MD, MD, and understanding confirmed on 06/16/2022 13:41:21 (ET). Electronically Signed: Karel Espana MD at 13:43 EST , Head/Neck CTA 06/16/22 13:22 IMPRESSION: Normal CTA Head and neck with contrast. COMMENT: Incidental prominent mucous retention cyst in the left maxillary sinus and tiny hypodense nodule in the right thyroid lobe. No follow-up is needed. Electronically Signed: Karel Espana MD at 13:48 EST , ADDENDUM: 06/16/22 1400 IMPRESSION: Normal CTA Head and neck with contrast. COMMENT: Incidental prominent mucous retention cyst in the left maxillary sinus and tiny hypodense nodule in the right thyroid lobe. No follow-up is needed. N.B. : The above Results were Read Back by Karel Espana MD to Julio Cesar Chen MD, and understanding confirmed on 06/16/2022 13:53:17 (ET). Electronically Signed: Karel Espana MD at 13:48 EST , Chest X-Ray 06/16/22 14:30 IMPRESSION: 1. No acute findings in the chest. 2. OPEN HEARTH FURNACE LABORER shunt in the right chest and increased bone spur in the right humeral head are new findings from 02/19/2014. Electronically Signed: Karel Espana MD at 14:46 EST , Brain CT 06/17/22 05:55 IMPRESSION: 1. Chronic involutional changes of the brain. 2. No CT evidence of acute intracranial hemorrhage. Electronically Signed: Aixa Fischer MD at 5:59 EST , Physical Exam Const Constitutional Narrative: Restless and agitated HEENT head/scalp atraumatic HEENT Narrative: Appears to have left-sided mouth droop, would not participate in neuro exam Eyes Eyes Narrative: Opens eyes spontaneously but refused to do so for neuro exam Neck supple Resp normal respiratory effort and clear to auscultation bilaterally Cardio Cardio Narrative: Irregularly irregular, and intermittent tachycardia GI soft to palpation, non-tender and non-distended Extremity Extremity Narrative: Moving limbs but difficulty with movement particularly in left upper extremity, cannot give thumbs up but did move her pointer finger. Would not participate in exam to assess strength Neuro Neuro Narrative: Appears to have left-sided facial droop, would not participate in exam but decreased movement in left upper extremity. Is confused and agitated Psych Psych Narrative: Irritable Assessment & Plan Assessment/Plan (1) Acute stroke due to ischemia: (2) Paroxysmal atrial fibrillation: PLAN: Plan 86-year-old female with history of Alzheimer's, OA, GERD, depression, paroxysmal atrial fibrillation presented 06/16 with altered mental status. Found on the floor at 8 AM on day of admission. Does have history of seizure disorder reportedly and usually after seizures is a bit confused. Placed back in bed due to presumption that it was post ictal. However 3 hours later she worsened and was brought in. There was a questionable history of A. fib but has been said 2 years ago she was told she did not need to continue to follow-up with cardiology because they had not detected any A. fib. Was only on aspirin not another anticoagulant. #Altered mental status There is concern for ischemic CVA given reported history of A. fib and not on anticoagulation Was out of window for tPA on arrival CT/CTA did not reveal any acute abnormalities, MRI had been ordered but repeat CT scan was done this morning with no interval changes, presumed MRI cannot be done because she has OPEN HEARTH FURNACE LABORER shunt Does have reported history of seizure disorder, continuing Keppra, Depakote resumed as IV Random Depakote level 54 Monitoring on telemetry On aspirin, awaiting swallow eval for Plavix Echo Speech, PT, OT Will consult neurology given her deficits and negative imaging, seizure disorder, persistent and worsening altered mental status and agitation, the patient Resuming the Depakote and giving 125 every 6 will likely help with her agitation, more limited given her not yet taking oral medication but can add prn medication if needed in addition to IV dep #A. fib Not on AC She is on Cardizem at home but she was unable to take p.o. 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 Charges/Coding Visit Charges Inpatient E&M: 27451 Subs Hosp L2
--- NOTE | 2022-06-17 10:35 | CASEMGMT ---
ZAHRAA SILVA NOTE: RN SHIRA to room to talk w/family @ bedside. Pt is resting in bed, restless/fidgety. Pt w/hx Alzheimer's type dementia and confused. Son, North, @ bedside and dtr-in-law, Luci, @ bedside. They state pt's went home to rest for awhile since he was in with patient during the night. Nroth and Luci state pt's is oriented and is the decision maker for pt, but they do have concerns that pt may end up needing to go somewhere long-term for care and that it would not be affordable. They stated pt was just recently @ [facility] in [place] and son states, She's not going back there. Questions answered re: hospice and if hospice or pt's insurance would cover for on-going care @ home, as she has been requiring 24/7 care. SW, Sasha, made aware and that family would like to talk w/her re: questions about [facility]. Nica RAMIREZ RN, CM
--- NOTE | 2022-06-17 11:11 | TELEMED_ITS ---
[facility] Telemed has confirmed receipt of a request for visit. This document confirms receipt of the order initiating the consult. To find the results of the consultation, please view the patient's reports for the scanned Telemed Consult.
[2022-06-17] MEDS: levETIRAcetam IV 1,000 MG/100 ML BAG 400 MG IV ×2 (11:32→21:36)
[2022-06-17] MEDS: Aspirin 300 MG Suppository RC (11:35)
[2022-06-17] MEDS: Enoxaparin 40 MG/0.4 ML Syringe SC (11:35)
--- NOTE | 2022-06-17 11:36 | CASEMGMT ---
RN SHIRA said patient's family had some questions regarding detention and Medicaid. SW went to patient's room and family had stepped out to get lunch. SW will check back. Sasha MANCERA
[2022-06-17 12:25] LABS: Ammonia < 10.0 umol/L (11-32)
--- NOTE | 2022-06-17 13:11 | NURSING ---
This RN taking over care at this time
--- NOTE | 2022-06-17 13:33 | CASEMGMT ---
SW reviewed therapy notes and care home facility is being recommended. LEANN met with patient's son North and his . Introduced self and role at [facility]. Both confirmed they would like patient to go to [facility]CU. Patient's is the decision maker, but they feel he will be in agreement with this. Patient's will be in, in a little bit. SW can check back. SW also asked if they were asking about a Medicaid application. North said they were so LEANN gave him the application and told him it would need to go to [facility]. He thanked LEANN for the information. LEANN did speak with [facility] in TCU and they could take patient when ready. LEANN notified patient's son and daugther in law. Plan: [facility] as long as patient's is in agreement. Sasha MANCERA
[2022-06-17] MEDS: Divalproex Sodium 125 MG SPRINKLE 250 MG PO (14:09)
--- NOTE | 2022-06-17 14:34 | CHAPLAIN ---
Type of Pastoral Visit _x__ Initial Visit ___ Follow-up Visit ___ On-call Visit ___ General Patient Visit ___ Spiritual Assessment ___ Family Conference ___ Bereavement ___ Rapid Response ___ Code Blue ___ Other (describe below) Pastoral Care Referral From _x__ Patient ___ Family ___ Nurse ___ Physician ___ Law Firm Partner ___ Hospital Chaplain ___ Other (describe below) Sacrament/Intervention _x__ Active listening ___ Anointing ___ Jainism ___ Bereavement ___ Communion ___ [place] exploration ___ _x__ Life review _x__ Prayer ___ Reconciliation ___ Sacrament of Sick _x__ Supportive presence ___ Wedding ___ Other (describe below) Pastoral Comments patient is sleeping and only opens her eyes when spoken directly to her name; son of pt is in the room and gives the details; pt has fpc dementia; pt has had a stroke and unable to talk at this time; son reveals more of the total family need which includes pt's spouse and his own decline; son welcomes time to talk and prayer
--- NOTE | 2022-06-17 14:37 | CASEMGMT ---
SW did not complete a PHQ9 with patient as she is confused. Sasha Miles OPERATIONAL COMMUNICATION CHIEF FIORDALIZA
[2022-06-18] VITALS (13 sets, daily range): BP systolic 104–128; BP diastolic 48–55; PULSE 56–77; RESP 13–18; TEMP 36.6–37.3; O2SAT 92–97; BMI 21.7
[2022-06-18 05:25] LABS: Absolute Lymphocyte Count 1.07 X10^3/uL (0.83-4.51); Absolute Neutrophil Count 5.2 X10^3/uL (2.0-7.7); Basophil# 0.03 X10^3/uL; Basophil% 0.4 % (0-1); Eosinophil# 0.16 X10^3/uL; Eosinophils% 2.2 % (0-5); Hematocrit 35.4 % (37-47); Hemoglobin 11.5 g/dL (12.0-15.0); Lymphocyte # 1.07 X10^3/ul (0.83-4.51); Lymphocyte % 14.6 % (19-41); Mean Corp Hgb Conc 32.5 g/dL (32-36); Mean Corpuscular Volume 95.4 fL (81-99); Mean Platelet Vol. 11.1 fl (6.2-12.0); Monocyte# 0.84 X10^3/uL; Monocyte% 11.4 % (0-10); NRBC Flagged by Analyzer 0 % (0-5); Neutrophil # 5.22 X10^3/uL (2.7-7.7); Platelet Count 253 K/mm3 (150-450); RBC Distribution Width CV 13.1 % (11.6-14.6); RBC Distribution Width SD 45.9 fl (35.1-43.9); Red Blood Count 3.71 M/mm3 (4.2-5.4); White Blood Count 7.4 K/mm3 (4.4-11.0)
[2022-06-18 05:53] LABS: AST(SGOT) 12 U/L (15-37); Alanine Aminotransfer ALT/SGPT 16 U/L (13-56); Albumin, Serum 2.9 g/dL (3.2-5.0); Alkaline Phosphatase 67 U/L (45-117); Anion Gap 9 (5-15); BUN 11 mg/dL (7-18); Calcium,Total 8.4 mg/dL (8.5-10.1); Chloride 111 mmol/L (98-107); Creatinine, Serum 0.73 mg/dL (0.55-1.02); EST Glomerular Filtration Rate 80 mL/min (>60); Est Glom Filt Rate - Afr Amer 97 mL/min (>60); Estimated Creatinine Clearance 40.72 ml/min; Glucose 70 mg/dL (74-106); Potassium 3.3 mmol/L (3.5-5.1); Protein, Total 5.9 g/dL (6.4-8.2); Sodium Level 142 mmol/L (136-145)
--- NOTE | 2022-06-18 06:51 | NURSING ---
Documentation reviewed with Krish [facility].
--- NOTE | 2022-06-18 08:44 | PN.HOSP_ITS ---
Subjective Subjective Tired this morning and not cooperative with exam. Objective Data Objective Data Vital Signs: Vital Signs Temp Pulse Resp BP Pulse Ox O2 Del Method 99.1 F 62 18 124/52 H 97 Room Air 06/18/22 02:56 06/18/22 08:20 06/18/22 02:56 06/18/22 02:56 06/18/22 07:44 06/18/22 08:15 Oxygen Delivery Method Room Air Weight: 62.959 kg Body Mass Index (BMI) 21.7 Intake & Output: Intake and Output for Last 24 Hours 06/16/22 06/17/22 06/18/22 23:59 23:59 23:59 Intake Total 100 / 100 2234.50 / 2234.50 0 / 0 Output Total 225 / 225 200 / 200 Balance -125 / -125 2034.50 / 2034.50 0 / 0 Medical Nutrition Assessment Dietitian: Malnutrition Criteria Met Start: 06/17/22 15:45 Freq: Status: Active Protocol: Document 06/17/22 15:45 AG (Rec: 06/17/22 15:45 AG [id number]) Nutrition Malnutrition Evidence of Malnutrition Exists Yes Malnutrition (severe): Chronic Evidenced By Suboptimal Energy Intake ( Severe),Weight Loss (Severe) Clinical Problem Chronic Disease or Condition Related Malnutrition Etiology severe, chronic malnutrition related to inadequate oral intake d/t dementia Signs/Symptoms as evidenced by unintentional wt loss of 16.2#/10% x 2 months; estimated PO intake meeting <75% of estimated energy needs x 2 months; Mild muscle wasting/fat loss evident in orbital, clavicle, acromion, and temporal areas. Status Active Problem Recommendation Dietitian Recommendations/Changes regular diet as tolerated- texture/consistency per EGG PASTEURIZER; will fortify foods and try magic cup w/ meals when diet advanced as family does not think pt will be accepting of ONS Lab / Micro Data Result Diagrams: 06/18/22 04:55 06/18/22 04:55 Labs: Laboratory Results - last 24 hr 06/17/22 11:50: Ammonia < 10.0 L 06/18/22 04:55: WBC 7.4, RBC 3.71 L, Hgb 11.5 L, Hct 35.4 L, MCV 95.4, MCH 31.0, MCHC 32.5, RDW Std Deviation 45.9 H, RDW Coeff of Karon 13.1, Plt Count 253, MPV 11.1, Immature Gran % (Auto) 0.400, Neut % (Auto) 71.0 H, Lymph % (Auto) 14.6 L, [place] % (Auto) 11.4 H, Eos % (Auto) 2.2, Baso % (Auto) 0.4, Absolute Neuts (auto) 5.2, Absolute Lymphs (auto) 1.07, Nucleated RBC % 0 06/18/22 04:55: Sodium 142, Potassium 3.3 L, Chloride 111 H, Carbon Dioxide 22.0, Anion Gap 9, BUN 11, Creatinine 0.73, Estim Creat Clear Calc 40.72, Est GFR (MDRD) Af Amer 97, Est GFR (MDRD) Non-Af 80, BUN/Creatinine Ratio 15.0, Glucose 70 L, Calcium 8.4 L, Total Bilirubin 0.80, AST 12 L, ALT 16, Alkaline Phosphatase 67, Total Protein 5.9 L, Albumin 2.9 L, Globulin 3.0, Albumi n/Globulin Ratio 1.0 Radiography Diagnostic Testing: Radiology Impression Echocardiogram 06/16/22 17:35 Interpretation Summary The estimated ejection fraction is 40-45 %. Mild (1+) mitral valve insufficiency. Aortic sclerosis, no stenosis. Ordering Physician: Anastasiya Horvath Referring Physician: Herminio Ford Performed By: Shannon Jones, JUSTYN, RVT Physical Exam Const Constitutional Narrative: Tired, would not wake up to cooperate with exam HEENT HEENT Narrative: Appears to still have some left-sided facial droop Eyes Eyes Narrative: Would not cooperate with neuro exam Neck supple Resp normal respiratory effort Cardio regular rate and regular rhythm GI soft to palpation, non-tender and non-distended Extremity Extremity Narrative: Moved extremities in bed but would not cooperate with neuro exam Neuro Neuro Narrative: Did not cooperate with neuro exam, will try again later Psych Psych Narrative: Uncooperative Assessment & Plan Assessment/Plan (1) Acute stroke due to ischemia: (2) Paroxysmal atrial fibrillation: PLAN: Plan 86-year-old female with history of Alzheimer's, OA, GERD, depression, paroxysmal atrial fibrillation presented 06/16 with altered mental status. Found on the floor at 8 AM on day of admission. Does have history of seizure disorder reportedly and usually after seizures is a bit confused. Placed back in bed due to presumption that it was post ictal. However 3 hours later she worsened and was brought in. There was a questionable history of A. fib but has been said 2 years ago she was told she did not need to continue to follow-up with cardiology because they had not detected any A. fib. Was only on aspirin not another anticoagulant. #Altered mental status There is concern for ischemic CVA given reported history of A. fib and not on anticoagulation Was out of window for tPA on arrival CT/CTA did not reveal any acute abnormalities, MRI had been ordered but repeat CT scan was done this morning with no interval changes, presumed MRI cannot be done because she has INSPECTOR PENETRANT shunt Does have reported history of seizure disorder, continuing Keppra, Depakote resumed as IV Random Depakote level 54 Monitoring on telemetry On aspirin, awaiting swallow eval for Plavix Echo Speech, PT, OT Will consult neurology given her deficits and negative imaging, seizure disord er, persistent and worsening altered mental status and agitation, the patient Resuming the Depakote and giving 125 every 6 will likely help with her agitation, more limited given her not yet taking oral medication but can add prn medication if needed in addition to IV dep 06/18: Concern echo showed EF of 40 to 45% with mild mitral valve insufficiency and aortic sclerosis with no stenosis. They recommended MRI brain without contrast with pre and post shunt x-ray. Unclear however if she will be able to cooperate for MRI given mental status. Still on Keppra IV and Depakote has been increased to 500 twice daily per recommendations. On aspirin and a high-dose statin. We will check B12 and TSH. Ammonia was within normal limits #A. fib Not on AC She is on Cardizem at home but she was unable to take p.o. Cardizem because she is n.p.o., did receive Cardizem bolus in the ED On telemetry Echo ordered Did not respond to push of Lopressor, will start Cardizem drip 06/18: Converted with Cardizem drip and became bradycardic, this was stopped and she was transition to oral Lopressor #Dementia: on donepezil and memantine at home but is only taking critical meds until further swallow eval improves so these have been held. Would only consider resuming donepezil as memantine can contribute to behavioral disturbance #History of seizure disorder: on keppra; placed on IV keppra due to her being NPO, Depakote given and Depakote sprinkles and dose increased per neurology recommendations. 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 Charges/Coding Visit Charges Inpatient E&M: 67573 Subs Hosp L2
--- NOTE | 2022-06-18 10:32 | CASEMGMT ---
LEANN spoke with patient's , Jaquan. LEANN introduced self and role at [facility]. Jaquan told SW that he did the Medicaid application and sent it in. LEANN explained that therapy is recommending patient go somewhere short term for rehab. Jaquan said he does not want her to go back to [facility]. He started to pull out the SNF list when he said he wants patient to stay right here at the hospital's unit. LEANN asked if he means TCU and he said yes. SW let him know that TCU can take her when she is ready. He thanked SW for checking in with him. Plan: [facility] pending patient being medically ready and pre-cert. Sasha MANCERA
[2022-06-18] MEDS: Enoxaparin 40 MG/0.4 ML Syringe SC (11:06)
[2022-06-18 11:09] LABS: Thyroid Stim Hormone (TSH) 1.61 uIU/mL (0.358-3.74)
[2022-06-18] MEDS: levETIRAcetam IV 1,000 MG/100 ML BAG 400 MG IV ×2 (11:14→22:31)
[2022-06-18 12:21] LABS: Vitamin B12 739 pg/mL (211-911)
[2022-06-18] MEDS: 0.9% Saline Lock 10 ML Syringe IV (22:31)
[2022-06-19] VITALS (16 sets, daily range): BP systolic 117–146; BP diastolic 89–103; PULSE 76–155; RESP 14–18; TEMP 36.3–38.3; O2SAT 92–95; BMI 21.7
[2022-06-19] MEDS: Metoprolol Tartrate 5 MG/5 ML Vial IV ×3 (03:34→21:25)
[2022-06-19] MEDS: Metoprolol Tartrate 25 MG Tablet 12.5 MG PO (04:54)
[2022-06-19 05:31] LABS: Absolute Lymphocyte Count 0.51 X10^3/uL (0.83-4.51); Absolute Neutrophil Count 9.6 X10^3/uL (2.0-7.7); Basophil# 0.03 X10^3/uL; Basophil% 0.3 % (0-1); Eosinophil# 0.03 X10^3/uL; Eosinophils% 0.3 % (0-5); Hematocrit 38.4 % (37-47); Hemoglobin 12.3 g/dL (12.0-15.0); Lymphocyte # 0.51 X10^3/ul (0.83-4.51); Lymphocyte % 4.5 % (19-41); Mean Corpuscular Hgb 30.1 pg (27.0-32.0); Mean Corpuscular Volume 94.1 fL (81-99); Mean Platelet Vol. 10.9 fl (6.2-12.0); Monocyte# 1.07 X10^3/uL; Monocyte% 9.4 % (0-10); NRBC Flagged by Analyzer 0 % (0-5); Neutrophil # 9.64 X10^3/uL (2.7-7.7); Neutrophil % 84.6 % (47-70); POSITIVE DIFFERENTIAL YES; Platelet Count 283 K/mm3 (150-450); RBC Distribution Width CV 13.1 % (11.6-14.6); RBC Distribution Width SD 45.2 fl (35.1-43.9); Red Blood Count 4.08 M/mm3 (4.2-5.4); White Blood Count 11.4 K/mm3 (4.4-11.0)
[2022-06-19 05:46] LABS: Differential Indicated SCAN CRITERIA MET
[2022-06-19 06:02] LABS: Differential Comment SCANNED
[2022-06-19 06:14] LABS: Anion Gap 14 (5-15); BUN 10 mg/dL (7-18); BUN/Creat Ratio 13.7 RATIO (10-20); Calcium,Total 8.8 mg/dL (8.5-10.1); Chloride 111 mmol/L (98-107); Creatinine, Serum 0.73 mg/dL (0.55-1.02); EST Glomerular Filtration Rate 81 mL/min (>60); Est Glom Filt Rate - Afr Amer 98 mL/min (>60); Estimated Creatinine Clearance 40.72 ml/min; Glucose 118 mg/dL (74-106); Potassium 3.7 mmol/L (3.5-5.1); Sodium Level 142 mmol/L (136-145)
--- NOTE | 2022-06-19 07:35 | EKG12_ITS ---
Test Reason : rythm change Blood Pressure : / mmHG Vent. Rate : 138 BPM Atrial Rate : 326 BPM P-R Int : 000 ms QRS Dur : 072 ms QT Int : 304 ms P-R-T Axes : 000 013 128 degrees QTc Int : 460 ms Atrial flutter with variable A-V block ST depression, consider subendocardial injury Nonspecific T wave abnormality Abnormal ECG Confirmed by TATA WOOD, TOMASA ([id number]), department editor CINTIA DELGADO ([id number]) on 06/23/2022 8:57:17 AM Referred By: Yuliet Confirmed By:TOMASA PAYTON MD
[2022-06-19] MEDS: 0.9% Saline Lock 10 ML Syringe IV ×4 (07:46→21:25)
[2022-06-19] MEDS: Ensure Plus High Protein 120 ML LIQUID PO ×2 (07:52→17:30)
[2022-06-19] MEDS: Aspirin 325 MG Tablet PO (07:53)
--- NOTE | 2022-06-19 07:55 | RAD_ITS ---
STUDY: X-RAY CHEST REASON FOR EXAM: Female, 86 years old. Possible aspiration TECHNIQUE: Single AP portable view of the chest. COMPARISON: Comparison is made with prior chest radiograph dated 06/16/2022. FINDINGS: A right-sided ventriculoperitoneal shunt tube is once again seen. EKG electrodes are seen. Stable mild increased markings at the left lung base. There is no demonstrated pleural abnormality. Normal size heart. Normal mediastinum and emili. Normal visualized pulmonary arteries. There is atherosclerotic calcification of the aortic arch with tortuosity. There are diffuse degenerative changes of the visualized thoracic spine. Normal visualized ribs, clavicles, and shoulders. There is no demonstrated abnormality of the visualized soft tissue structures of the upper abdomen. RAD/Chest 1 View (Portable) IMPRESSION: Stable mild increased markings at the left lung base. Electronically Signed: Isaias Yoo MD at 12:04 EST ,
[2022-06-19] MEDS: levETIRAcetam IV 1,000 MG/100 ML BAG 400 MG IV ×2 (10:00→21:01)
[2022-06-19] MEDS: Enoxaparin 40 MG/0.4 ML Syringe SC (10:00)
[2022-06-19] MEDS: Divalproex Sodium 125 MG SPRINKLE 500 MG PO (10:00)
[2022-06-19] MEDS: dilTIAZem 25 MG/5 ML Vial 10 MG IV BOLUS (10:01)
--- NOTE | 2022-06-19 10:38 | CASEMGMT ---
Patient may be ready for discharge over the weekend. SW sent patient's clinical information to [facility], patient's insurance to obtain pre-cert. Await response. Plan: [facility] pending approval and patient being medically ready. Sasha MANCERA
--- NOTE | 2022-06-19 10:40 | NURSING ---
at 0930 notified of increased hr and md assessing patient He gave number for [facility] where patient had shunt placed [phone] records to be obtained
--- NOTE | 2022-06-19 11:32 | NURSING ---
1030 on phone with son Camilo. Called order for EKG. Patient Hr slowed down to the 90's. Son Camilo called for update on patient. Was expressing concerns about why she isn't eating and why we aren't putting in a tube for feeding or giving nutrition through the IV. Explained to son her that patient is able to take oral when alert. Physicians are evaluating still at this time. Son states he lives three hours away and will talk to the occasionally. And states the other son is not on speaking terms with father. early childhood education worker notified of familial discord.
--- NOTE | 2022-06-19 11:58 | RAD.NOTE ---
Unable to do MRI brain until we obtain make and model information on pt's shunt.
--- NOTE | 2022-06-19 12:45 | PCM.PN.HOSP ---
Subjective Subjective Very tired again today, reluctant to participate in exam. Objective Data Objective Data Vital Signs: Vital Signs Temp Pulse Resp BP Pulse Ox O2 Del Method 101 F H 136 H 16 146/91 H 95 Room Air 06/19/22 07:28 06/19/22 08:03 06/19/22 07:28 06/19/22 07:44 06/19/22 08:29 06/19/22 08:29 Oxygen Delivery Method Room Air Weight: 62.959 kg Body Mass Index (BMI) 21.7 Intake & Output: Intake and Output for Last 24 Hours 06/17/22 06/18/22 06/19/22 23:59 23:59 23:59 Intake Total 2234.50 / 2234.50 460 / 460 100 / 100 Output Total 200 / 200 Balance 2034.50 / 2034.50 460 / 460 100 / 100 Medical Nutrition Assessment Dietitian: Malnutrition Criteria Met Start: 06/17/22 15:45 Freq: Status: Active Protocol: Document 06/17/22 15:45 AG (Rec: 06/17/22 15:45 AG [id number]) Nutrition Malnutrition Evidence of Malnutrition Exists Yes Malnutrition (severe): Chronic Evidenced By Suboptimal Energy Intake ( Severe),Weight Loss (Severe) Clinical Problem Chronic Disease or Condition Related Malnutrition Etiology severe, chronic malnutrition related to inadequate oral intake d/t dementia Signs/Symptoms as evidenced by unintentional wt loss of 16.2#/10% x 2 months; estimated PO intake meeting <75% of estimated energy needs x 2 months; Mild muscle wasting/fat loss evident in orbital, clavicle, acromion, and temporal areas. Status Active Problem Recommendation Dietitian Recommendations/Changes regular diet as tolerated- texture/consistency per LIGHT EQUIPMENT OPERATOR; will fortify foods and try magic cup w/ meals when diet advanced as family does not think pt will be accepting of ONS Lab / Micro Data Result Diagrams: 06/19/22 05:13 06/19/22 05:13 Labs: Laboratory Results - last 24 hr 06/19/22 05:13: WBC 11.4 H, RBC 4.08 L, Hgb 12.3, Hct 38.4, MCV 94.1, MCH 30.1, MCHC 32.0, RDW Std Deviation 45.2 H, RDW Coeff of Karon 13.1, Plt Count 283, MPV 10.9, Immature Gran % (Auto) 0.900, Neut % (Auto) 84.6 H, Lymph % (Auto) 4.5 L, [place] % (Auto) 9.4, Eos % (Auto) 0.3, Baso % (Auto) 0.3, Absolute Neuts (auto) 9.6 H, Absolute Lymphs (auto) 0.51 L, Nucleated RBC % 0, Differential Comment SCANNED 06/19/22 05:13: Sodium 142, Potassium 3.7, Chloride 111 H, Carbon Dioxide 17.0 L, Anion Gap 14, BUN 10, Creatinine 0.73, Estim Creat Clear Calc 40.72, Est GFR (MDRD) Af Amer 98, Est GFR (MDRD) Non-Af 81, BUN/Creatinine Ratio 13.7, Glucose 118 H, Calcium 8.8 Radiography Diagnostic Testing: Radiology Impression Chest X-Ray 06/19/22 07:55 IMPRESSION: Stable mild increased markings at the left lung base. Electronically Signed: Isaias Yoo MD at 12:04 EST , Physical Exam Const Constitutional Narrative: Tired, would not wake up to cooperate with exam HEENT HEENT Narrative: Appears to still have some left-sided facial droop Eyes Eyes Narrative: Would not cooperate with neuro exam Neck supple Resp normal respiratory effort Cardio regular rate and regular rhythm GI soft to palpation, non-tender and non-distended Extremity Extremity Narrative: Moved extremities in bed but would not cooperate with neuro exam Neuro Neuro Narrative: Did not cooperate with neuro exam, will try again later Psych Psych Narrative: Uncooperative Assessment & Plan Assessment/Plan (1) Acute stroke due to ischemia: (2) Paroxysmal atrial fibrillation: PLAN: Plan 86-year-old female with history of Alzheimer's, OA, GERD, depression, paroxysmal atrial fibrillation presented 06/16 with altered mental status. Found on the floor at 8 AM on day of admission. Does have history of seizure disorder reportedly and usually after seizures is a bit confused. Placed back in bed due to presumption that it was post ictal. However 3 hours later she worsened and was brought in. There was a questionable history of A. fib but has been said 2 years ago she was told she did not need to continue to follow-up with cardiology because they had not detected any A. fib. Was only on aspirin not another anticoagulant. #Altered mental status There is concern for ischemic CVA given reported history of A. fib and not on anticoagulation Was out of window for tPA on arrival CT/CTA did not reveal any acute abnormalities, MRI had been ordered but repeat CT scan was done this morning with no interval changes, presumed MRI cannot be done because she has CLOTH INSPECTOR shunt Does have reported history of seizure disorder, continuing Keppra, Depakote resumed as IV Random Depakote level 54 Monitoring on telemetry On aspirin, awaiting swallow eval for Plavix Echo Speech, PT, OT Will consult neurology given her deficits and negative imaging, seizure disorder, persistent and worsening altered mental status and agitation, the patient Resuming the Depakote and giving 125 every 6 will likely help with her agitation, more limited given her not yet taking oral medication but can add prn medication if needed in addition to IV dep 06/18: Concern echo showed EF of 40 to 45% with mild mitral valve insufficiency and aortic sclerosis with no stenosis. They recommended MRI brain without contrast with pre and post shunt x-ray. Unclear however if she will be able to cooperate for MRI given mental status. Still on Keppra IV and Depakote has been increased to 500 twice daily per recommendations. On aspirin and a high-dose statin. We will check B12 and TSH. Ammonia was within normal limits 06/19: Continues to have problems with being tired and unwilling to participate in exam. Was able to acquire records of CLOTH INSPECTOR shunt placement which been placed on chart, they will be faxed down to MRI to assess if we are able to perform MRI here. Unfortunately even if able suspected will be difficult for her to cooperate with this. If unable we will need to discuss further options. Depakote had been held because she was too tired to take medicine, this was given earlier today however. B12 and TSH within normal limits. Did spike temp, chest x-ray overall unremarkable, will check UA. Could be hypoactive delirium, until she is able to reliably take the Depakote would be hesitant to start Abilify however. We will try and melatonin nightly if she is able to tolerate swallowing this. If she has further sedation when taking the Depakote can always consider Lamictal. Is still on IV Keppra #A. fib with RVR Not on AC She is on Cardizem at home but she was unable to take p.o. Cardizem because she is n.p.o., did receive Cardizem bolus in the ED On telemetry Echo ordered Did not respond to push of Lopressor, will start Cardizem drip 06/18: Converted with Cardizem drip and became bradycardic, this was stopped and she was transition to oral Lopressor 06/19: Became tachycardic again with the irregular rhythm, A. fib versus flutter with variable block. Does not have good response to as needed metoprolol with this, likely went back into rhythm however because she had not tolerated p.o. so was not receiving oral metoprolol. Improved with Cardizem bolus, will start p.o. Cardizem that can be crushed. Can consider resuming drip but did get bradycardic last time she was on the drip #Dementia: on donepezil and memantine at home but is only taking critical meds until further swallow eval improves so these have been held. Would only consider resuming donepezil as memantine can contribute to behavioral disturbance #History of seizure disorder: on keppra; placed on IV keppra due to her being NPO, Depakote given and Depakote sprinkles and dose increased per neurology recommendations. 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 Unclear who she currently follows with for this DVT prophylaxis: SCDs. Charges/Coding Visit Charges Inpatient E&M: 05825 Subs Hosp L2
--- NOTE | 2022-06-19 12:50 | CASEMGMT ---
LEANN received a fax from [facility] and they approved patient for TCU. Pre-cert is good through 06-21-22. Auth number is [id number]. LEANN will place a green sheet on patient's chart in the event she is ready over the weekend. Plan: d/c to [facility] TCU when medically ready. Sasha MANCERA
[2022-06-19] MEDS: dilTIAZem 30 MG Tablet PO (15:17)
--- NOTE | 2022-06-19 18:58 | PCM.HOSP.N ---
Hospitalist Note Spoke with neuro RE symptoms, MRI, recs. Discussed that we are unable to preform MRI here given the shunt being programmed and needing program eval before and after, discussed that with her mental status and agitation it would be difficult to obtain MRI in and of itself without sedation and it was deemed repeat CT scan should be preformed. Currently plan to treat like stroke, asa and plavix x3 weeks followed by just aspirin recommended. Will have risks vs benefits disussion with family but given mental status and fall risk the risks seem to outweigh benefits of full dose AC. Also discussed EEG and seizure activity. She recommended adding vimpat 100mg BID with buttermaker continuous churn plan to taper off keppra and continue depakote. Neuro also advised depakote level and recommended ESR and CRP to eval for vasculitis as well as shunt series to verify placement and that that is not contributing.
[2022-06-20] VITALS (27 sets, daily range): BP systolic 107–152; BP diastolic 52–94; PULSE 74–149; RESP 16–24; TEMP 36.6–36.7; O2SAT 90–97; BMI 21.7
[2022-06-20 02:37] LABS: Color, Urine Yellow (Yellow); Glucose, Dipstick Normal (Normal); Leukocyte Esterase-Dipstick 25 /ul (Negative); Mucous, Urine 0 SEEN /hpf (<or=2+); Nitrite-Dipstick Negative (Negative); Occult Blood-Urine 150 /ul (Negative); Protein-Dipstick 30 mg/dl (Negative); Specific Gravity, Urine 1.025 (1.002-1.030); Urine Bilirubin Dipstick Negative (Negative); Urine Clarity Clear (Clear); Urine Urobilinogen Normal (Normal)
[2022-06-20 02:46] LABS: Ketone-Dipstick 150 mg/dl (Negative)
[2022-06-20 02:48] LABS: Amorphous Sediment RARE; Bacteria 2+ /hpf (None Seen); Red Blood Cells-Urine 0-5 SEEN /hpf (0-5); Squamous Epithelial Cells - UA 0-5 SEEN /hpf (5-10); White Blood Cells 5-10 SEEN /hpf (0-5)
[2022-06-20] MEDS: Metoprolol Tartrate 5 MG/5 ML Vial IV (03:27)
[2022-06-20] MEDS: 0.9% Saline Lock 10 ML Syringe IV ×2 (03:27→12:51)
[2022-06-20] MEDS: dilTIAZem 25 MG/5 ML Vial 20 MG IV BOLUS (04:40)
--- NOTE | 2022-06-20 05:45 | RAD_ITS ---
INDICATION: Verify shunt isn''t kinked/no overt abn noted EXAMINATION/TECHNIQUE: X-RAY - XR Shuntogram (Previously Placed): Lateral view skull with frontal views of chest, abdomen and pelvis. COMPARISON: Chest radiograph from 06/19/2022. FINDINGS: Posterior parietal approach ventriculostomy catheter projects caudally along right side of neck and chest into abdomen with tip located within the midline pelvis. There is no shunt tubing kinking or discontinuity demonstrated. Left basilar bandlike linear opacities noted with mildly elevated right hemidiaphragm. Heart size within normal limits. No pneumothorax or sizable pleural effusion demonstrated. Nonobstructive bowel gas pattern. Cholecystectomy clips noted. Skeletal degenerative changes. Status post bilateral hip arthroplasty. RAD/Shuntogram/Prev Placed Shunt IMPRESSION: Unremarkable DEHYDROGENATION OPERATOR shunt tubing. Left basilar linear scarring and/or atelectasis. Electronically Signed: Julien Lagunas MD at 7:59 EST ,
--- NOTE | 2022-06-20 05:55 | CT_ITS ---
We are attempting to reach an attending provider to discuss findings. An addendum with communication details will be sent when the communication is complete. INDICATION: repeat CT f/u concern for CVA EXAMINATION: CT Head or Brain W/O Contrast Injection TECHNIQUE: Multiple axial images were obtained of the head without intravenous contrast. A radiation dose optimization technique was used for this scan. IV Contrast dosage and agent: None. COMPARISON: Head CT from 06/17/2022 and 06/16/2022. FINDINGS: BRAIN PARENCHYMA: No intra- or extra-axial hemorrhage. Subtle evolving low attenuation changes involving precentral gyrus of posterior right frontal lobe compatible with recent infarct (series 2 axial images 29-34 and sagittal reconstructions series 602 images 11-18). No significant intracranial mass effect and no midline shift. Small chronic left cerebellar infarct again noted. Chronic bilateral deep cerebral white matter lucencies are present. Chronic cerebral involutional changes. CSF SPACES: Right parietal approach ventriculostomy catheter tip within body of left lateral ventricle. No acute hydrocephalus. Prominent cerebral sulci and extraaxial spaces secondary to involutional changes. Basal cisterns are patent. Intracranial atherosclerotic calcifications. CALVARIUM, SKULL BASE, PARANASAL SINUSES AND MASTOID AIR CELLS: No acute calvarial fracture. Left maxillary sinus mucosal retention cyst versus polyp again noted. Mastoid air cells are well-pneumatized. ORBITS: No acute findings, as visualized. CT/Brain/Head without Contrast IMPRESSION: Evolving small acute infarct precentral gyrus of right frontal lobe. Brain atrophy and chronic ischemic changes. Electronically Signed: Julien Lagunas MD at 6:53 EST ,
[2022-06-20 06:32] LABS: Absolute Lymphocyte Count 1.49 X10^3/uL (0.83-4.51); Absolute Neutrophil Count 7.1 X10^3/uL (2.0-7.7); Basophil# 0.04 X10^3/uL; Basophil% 0.4 % (0-1); Eosinophil# 0.03 X10^3/uL; Eosinophils% 0.3 % (0-5); Hematocrit 37.7 % (37-47); Hemoglobin 12.4 g/dL (12.0-15.0); Lymphocyte # 1.49 X10^3/ul (0.83-4.51); Lymphocyte % 14.2 % (19-41); Mean Corp Hgb Conc 32.9 g/dL (32-36); Mean Corpuscular Hgb 30.2 pg (27.0-32.0); Mean Corpuscular Volume 91.7 fL (81-99); Mean Platelet Vol. 10.7 fl (6.2-12.0); Monocyte# 1.77 X10^3/uL; Monocyte% 16.9 % (0-10); NRBC Flagged by Analyzer 0 % (0-5); Neutrophil % 67.6 % (47-70); POSITIVE DIFFERENTIAL YES; Platelet Count 289 K/mm3 (150-450); RBC Distribution Width CV 13.3 % (11.6-14.6); RBC Distribution Width SD 44.6 fl (35.1-43.9); Red Blood Count 4.11 M/mm3 (4.2-5.4); White Blood Count 10.5 K/mm3 (4.4-11.0)
[2022-06-20 06:50] LABS: Differential Indicated SCAN CRITERIA MET
[2022-06-20 06:52] LABS: Differential Comment SCANNED
[2022-06-20 06:54] LABS: Anion Gap 11 (5-15); BUN 9 mg/dL (7-18); BUN/Creat Ratio 14.6 RATIO (10-20); Calcium,Total 8.5 mg/dL (8.5-10.1); Chloride 108 mmol/L (98-107); Creatinine, Serum 0.62 mg/dL (0.55-1.02); EST Glomerular Filtration Rate 98 mL/min (>60); Est Glom Filt Rate - Afr Amer 118 mL/min (>60); Estimated Creatinine Clearance 40.72 ml/min; Glucose 97 mg/dL (74-106); Potassium 3.6 mmol/L (3.5-5.1); Sodium Level 139 mmol/L (136-145)
[2022-06-20 06:58] LABS: Erythrocyte Sedimentation Rate 37 mm/hr (0-30)
[2022-06-20 07:01] LABS: Valproic Acid (Depakene) Level 37 ug/mL (50-100)
--- NOTE | 2022-06-20 09:12 | ECHOL_ITS ---
Reason For Study: Emboli Procedure This was a limited 2D transthoracic echocardiogram. Exam performed portable in patient room. Left Ventricle Normal size and thickness. The left ventricular ejection fraction is 40 %. Right Ventricle Normal right ventricle. Atria The left and right atria are normal. Mitral Valve Mild-Moderate (1-2+) mitral valve insufficiency. Tricuspid Valve Mild to moderate (1-2+) tricuspid valve insufficiency. Normal pulmonary artery pressure. Aortic Valve Trisinus/trileaflet aortic valve. Mild (1+) aortic valve insufficiency. Pulmonic Valve The pulmonic valve is not well visualized. Great Vessels Normal sized aortic root. MMode/2D Measurements & Calculations LVIDd: 4.0 cm IVSd: 1.0 cm LVAd ap4: 20.6 cm2 LVIDs: 2.9 cm LVPWd: 1.1 cm LVLd ap4: 7.3 cm FS: 29.1 % EDV(MOD-sp4): 49.1 ml EDV(sp4-el): 49.3 ml LVAs ap4: 14.7 cm2 LVLs ap4: 6.5 cm ESV(MOD-sp4): 28.8 ml ESV(sp4-el): 28.0 ml EF(MOD-sp4): 41.4 % EF(sp4-el): 43.1 % SV(MOD-sp4): 20.3 ml SV(MOD-sp2): 23.3 ml LVAd ap2: 21.2 cm2 LVLd ap2: 7.2 cm EDV(MOD-sp2): 53.7 ml EDV(sp2-el): 52.9 ml LVAs ap2: 15.0 cm2 LVLs ap2: 6.6 cm ESV(MOD-sp2): 30.4 ml ESV(sp2-el): 28.9 ml EF(MOD-sp2): 43.4 % SV(sp4-el): 21.3 ml Doppler Measurements & Calculations TR max ozzy: 223.4 cm/sec TR max P.0 mmHg ECHO/Echo, Limited Study Interpretation Summary Mild (1+) aortic valve insufficiency. Mild-Moderate (1-2+) mitral valve insufficiency. Mild to moderate (1-2+) tricuspid valve insufficiency. The left ventricular ejection fraction is 40 %. Ordering Physician: Mary Vegas Referring Physician: Herminio Ford Performed By: Jenny Nugent, JUSTYN, RVT
--- NOTE | 2022-06-20 09:16 | PCM.PN.HOSP ---
Subjective Subjective Did wake up slightly more this morning, was able to move both legs, move both arms but currently give thumbs up with the right hand. Still primarily mumbles, would not voluntarily open eyes on exam Objective Data Objective Data Vital Signs: Vital Signs Temp Pulse Resp BP Pulse Ox O2 Del Method 98.1 F 118 H 16 152/94 H 97 Room Air 06/20/22 05:14 06/20/22 09:04 06/20/22 09:04 06/20/22 09:04 06/20/22 09:04 06/20/22 09:04 Oxygen Delivery Method Room Air Weight: 62.959 kg Body Mass Index (BMI) 21.7 Intake & Output: Intake and Output for Last 24 Hours 06/18/22 06/19/22 06/20/22 23:59 23:59 23:59 Intake Total 460 / 460 200 / 200 Output Total 400 / 400 100 / 100 Balance 460 / 460 -200 / -200 -100 / -100 Medical Nutrition Assessment Dietitian: Malnutrition Criteria Met Start: 06/17/22 15:45 Freq: Status: Active Protocol: Document 06/17/22 15:45 AG (Rec: 06/17/22 15:45 [id number]) Nutrition Malnutrition Evidence of Malnutrition Exists Yes Malnutrition (severe): Chronic Evidenced By Suboptimal Energy Intake ( Severe),Weight Loss (Severe) Clinical Problem Chronic Disease or Condition Related Malnutrition Etiology severe, chronic malnutrition related to inadequate oral intake d/t dementia Signs/Symptoms as evidenced by unintentional wt loss of 16.2#/10% x 2 months; estimated PO intake meeting <75% of estimated energy needs x 2 months; Mild muscle wasting/fat loss evident in orbital, clavicle, acromion, and temporal areas. Status Active Problem Recommendation Dietitian Recommendations/Changes regular diet as tolerated- texture/consistency per DOOR BUILDER; will fortify foods and try magic cup w/ meals when diet advanced as family does not think pt will be accepting of ONS Lab / Micro Data Result Diagrams: 06/20/22 06:20 06/20/22 06:20 Labs: Laboratory Results - last 24 hr 06/20/22 01:55: Urine Color Yellow, Urine Clarity Clear, Urine pH 5.0, Ur Specific [place] 1.025, Urine Protein 30 H, Urine Glucose (UA) Normal, Urine Ketones 150 A*, Urine Occult Blood 150 H, Urine Nitrite Negative, Urine Bilirubin Negative, Urine Urobilinogen Normal, Ur Leukocyte Esterase 25 H, Urine RBC 0-5 SEEN, Urine WBC 5-10 SEEN, Ur Squamous Epith Cells 0-5 SEEN, Amorphous Sediment RARE, Urine Bacteria 2+, Urine Mucus 0 SEEN 06/20/22 06:20: WBC 10.5, RBC 4.11 L, Hgb 12.4, Hct 37.7, MCV 91.7, MCH 30.2, MCHC 32.9, RDW Std Deviation 44.6 H, RDW Coeff of Karon 13.3, Plt Count 289, MPV 10.7, Immature Gran % (Auto) 0.600, Neut % (Auto) 67.6, Lymph % (Auto) 14.2 L, [place] % (Auto) 16.9 H, Eos % (Auto) 0.3, Baso % (Auto) 0.4, Absolute Neuts (auto) 7.1, Absolute Lymphs (auto) 1.49, Nucleated RBC % 0, Differential Comment SCANNED, ESR 37 H 06/20/22 06:20: Sodium 139, Potassium 3.6, Chloride 108 H, Carbon Dioxide 20.0 L, Anion Gap 11, BUN 9, Creatinine 0.62, Estim Creat Clear Calc 40.72, Est GFR (MDRD) Af Amer 118, Est GFR (MDRD) Non-Af 98, BUN/Creatinine Ratio 14.6, Glucose 97, Calcium 8.5, C-React Prot Ext Range 117.00 H 06/20/22 06:20: Valproic Acid 37 L Radiography Diagnostic Testing: Radiology Impression Chest X-Ray 06/19/22 07:55 IMPRESSION: Stable mild increased markings at the left lung base. Electronically Signed: Isaias Yoo MD at 12:04 EST , Shuntogram 06/20/22 05:45 IMPRESSION: Unremarkable CRYPTOGRAPHIC MACHINE OPERATOR shunt tubing. Left basilar linear scarring and/or atelectasis. Electronically Signed: Julien Lagunas MD at 7:59 EST , Brain CT 06/20/22 05:55 IMPRESSION: Evolving small acute infarct precentral gyrus of right frontal lobe. Brain atrophy and chronic ischemic changes. Electronically Signed: Julien Lagunas MD at 6:53 EST , ADDENDUM: 06/20/22 0705 IMPRESSION: Evolving small acute infarct precentral gyrus of right frontal lobe. Brain atrophy and chronic ischemic changes. N.B. : The above Results were Read Back by Julien Lagunas MD to Rae Houser RN, and understanding confirmed on 06/20/2022 06:58:33 (ET). Electronically Signed: Julien Lagunas MD at 6:53 EST , Physical Exam Const Constitutional Narrative: Tired, no apparent distress however HEENT HEENT Narrative: Atraumatic Eyes Eyes Narrative: Would not open eyes voluntarily on exam Neck supple Resp normal respiratory effort and clear to auscultation bilaterally Cardio Cardio Narrative: Irregularly irregular, tachy GI soft to palpation and non-distended Extremity Extremity Narrative: Moving both legs, does move both arms but follows directions with right hand, unable to give thumbs up with left hand and difficult squeezing hand on left side Neuro Neuro Narrative: Still some residual left-sided facial droop, limbs as above Psych Psych Narrative: Slightly more cooperative today but still minimally so Assessment & Plan Assessment/Plan (1) Acute stroke due to ischemia: (2) Paroxysmal atrial fibrillation: PLAN: Plan 86-year-old female with history of Alzheimer's, OA, GERD, depression, paroxysmal atrial fibrillation presented 06/16 with altered mental status. Found on the floor at 8 AM on day of admission. Does have history of seizure disorder reportedly and usually after seizures is a bit confused. Placed back in bed due to presumption that it was post ictal. However 3 hours later she worsened and was brought in. There was a questionable history of A. fib but has been said 2 years ago she was told she did not need to continue to follow-up with cardiology because they had not detected any A. fib. Was only on aspirin not another anticoagulant. #Acute ischemic CVA Persistent left-sided deficits CT on admission and repeat after had not revealed a stroke Unfortunately due to CRYPTOGRAPHIC MACHINE OPERATOR shunt being programmable and needing evaluated pre and post MRI we were unable to complete MRI at this facility Given agitation likely would have needed intubated and sedated to complete MRI, spoke with neurology yesterday about options and if transferring to obtain MRI was critical versus repeating CT, repeat CT advised which did show evolving small acute infarct in the pericentral gyrus of the right frontal lobe as well as some brain atrophy and chronic ischemic changes When speaking with neurology yesterday they did recommend aspirin and Plavix for 3 weeks followed by just aspirin, with history of A. fib we discussed anticoagulation but given comorbidities, agitation, dementia risks outweigh the benefits, will also discuss this with family Statin Echo with EF of 40 to 45%, mild mitral valve insufficiency, aortic sclerosis with no stenosis. It was a technically difficult study because she was combative. Given stroke now seen on CT Will reorder limited echo to try to assess for any kind of possible thrombus PT/OT/speech #Seizure disorder Reported history of seizure disorder for which she was put on Keppra as an outpatient, this caused agitation so Depakote was added to this regimen which helped but did cause her to sleep often Depakote level on admission with was 54 at random level She was reportedly still having intermittent staring spells, which is how her seizures present, even the Wednesday before admission She was placed on IV Keppra here and oral Depakote though she intermittently has been too tired to take oral medicine EEG on 06/18 showed left temporal sharp waves, left hemispheric slowing, mild generalized background slowing Still only intermittently taking p.o., discussed with neurology and Vimpat started. Started IV as she was unable to take oral last night Ultimate plan would be Vimpat and Depakote with prolonged taper of Keppra as an outpatient Depakote level this morning low but she was unable to get dose last night, discussed with her nurse best way to try to ensure she is able to tolerate the Depakote #Altered mental status Likely secondary to ischemic CVA and seizure disorder However ESR and CRP are elevated,? Component of vasculitis Will recontact neurology for recommendations given new finding Shuntogram unremarkable Discussed Abilify/other SGA options to help with agitation and mental status but this was advised against by neurology as this has not been started Melatonin nightly as tolerated Supportive care and environmental interventions Ammonia, B12, TSH have been unremarkable #A. fib with RVR Not on AC given bleeding risk Did not respond to metoprolol when she presented initially and was placed on Cardizem drip Discussed with her nurse that she may become bradycardic if she converts, will monitor this closely. She does become bradycardic or if blood pressure becomes an issue can DC and start on amnio drip #Dementia: on donepezil and memantine at home but is only taking critical meds until further swallow eval improves so these have been held. 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 Unclear who she currently follows with for this. Shuntogram unremarkable DVT prophylaxis: SCDs. Charges/Coding Visit Charges Inpatient E&M: 46106 Subs Hosp L2
[2022-06-20] MEDS: levETIRAcetam IV 1,000 MG/100 ML BAG 400 MG IV ×2 (11:42→20:29)
[2022-06-20] MEDS: Enoxaparin 40 MG/0.4 ML Syringe SC (11:46)
--- NOTE | 2022-06-20 11:54 | NURSING ---
Spoke at length w/pt's son and dtr in law. They state they are concerned that pt not return home under the care of her . They state, in the past, he has 'starved for for a few days bc he wanted her to lose weight, he has left her to lay after a fall for several hours. They live next door and can be there quickly but state it is usually many hours till he call for help. Son states as long as the pt doesn't go home, he is ok but will fight, in court if necessary, to keep her from under her husbands care. They also state concerns for the husbands mental health saying, he frequently loses things and accuses others of stealing from him.
[2022-06-20 18:22] LABS: Erythrocyte Sedimentation Rate 38 mm/hr (0-30)
[2022-06-20] MEDS: predniSONE 20 MG Tablet 60 MG PO (20:30)
[2022-06-20] MEDS: Divalproex Sodium 125 MG SPRINKLE 500 MG PO (20:31)
[2022-06-21] VITALS (16 sets, daily range): BP systolic 92–118; BP diastolic 54–70; PULSE 46–95; RESP 11–21; TEMP 36.4–36.5; O2SAT 92–98; BMI 21.7
[2022-06-21 06:28] LABS: Absolute Lymphocyte Count 0.54 X10^3/uL (0.83-4.51); Absolute Neutrophil Count 6.8 X10^3/uL (2.0-7.7); Basophil# 0.01 X10^3/uL; Basophil% 0.1 % (0-1); Hematocrit 39.8 % (37-47); Hemoglobin 13.1 g/dL (12.0-15.0); Lymphocyte # 0.54 X10^3/ul (0.83-4.51); Mean Corp Hgb Conc 32.9 g/dL (32-36); Mean Corpuscular Hgb 30.8 pg (27.0-32.0); Mean Corpuscular Volume 93.6 fL (81-99); Mean Platelet Vol. 11.4 fl (6.2-12.0); Monocyte# 0.37 X10^3/uL; Monocyte% 4.8 % (0-10); NRBC Flagged by Analyzer 0 % (0-5); Neutrophil # 6.77 X10^3/uL (2.7-7.7); Neutrophil % 87.3 % (47-70); POSITIVE DIFFERENTIAL YES; Platelet Count 293 K/mm3 (150-450); RBC Distribution Width CV 13.4 % (11.6-14.6); RBC Distribution Width SD 45.4 fl (35.1-43.9); Red Blood Count 4.25 M/mm3 (4.2-5.4); White Blood Count 7.8 K/mm3 (4.4-11.0)
[2022-06-21 06:45] LABS: Differential Indicated SCAN CRITERIA MET
[2022-06-21 06:59] LABS: ALB/GLOB Ratio 0.7 RATIO (0.9-2.4); AST(SGOT) 12 U/L (15-37); Alanine Aminotransfer ALT/SGPT 16 U/L (13-56); Albumin, Serum 2.7 g/dL (3.2-5.0); Alkaline Phosphatase 62 U/L (45-117); Anion Gap 12 (5-15); BUN 16 mg/dL (7-18); BUN/Creat Ratio 22.9 RATIO (10-20); Calcium,Total 8.9 mg/dL (8.5-10.1); Chloride 108 mmol/L (98-107); EST Glomerular Filtration Rate 85 mL/min (>60); Est Glom Filt Rate - Afr Amer 103 mL/min (>60); Estimated Creatinine Clearance 40.72 ml/min; Glucose 138 mg/dL (74-106); Potassium 3.6 mmol/L (3.5-5.1); Protein, Total 6.7 g/dL (6.4-8.2); Sodium Level 140 mmol/L (136-145)
[2022-06-21 07:17] LABS: Differential Comment SCANNED
[2022-06-21] MEDS: Acetaminophen 325 MG Tablet 650 MG PO (08:01)
[2022-06-21] MEDS: Aspirin 81 MG TAB.CHEW PO (08:04)
[2022-06-21] MEDS: Divalproex Sodium 125 MG SPRINKLE 500 MG PO (08:04)
[2022-06-21] MEDS: Clopidogrel Bisulfate 75 MG Tablet PO (08:05)
[2022-06-21] MEDS: Enoxaparin 40 MG/0.4 ML Syringe SC (08:05)
[2022-06-21] MEDS: 0.9% Saline Lock 10 ML Syringe IV (10:47)
[2022-06-21] MEDS: levETIRAcetam IV 1,000 MG/100 ML BAG 400 MG IV (11:28)
--- NOTE | 2022-06-21 11:52 | DCINST_ITS ---
Discharge Instructions Diet Discharge Diet: - (. Textures, thin liquids. Small bites small sips no straws slow rate feed only when alert and sitting upright with hip flexion at 90 degrees and remain sitting upright for 30 minutes after p.o. intake. Further need for skilled speech services 5-7 times a week) Activity Discharge Activity: - (Currently requires max assist) Follow Up Care Test Results: Test results from this visit will be discussed in further detail at your follow- up appointment, if applicable. Discharge Plan Admission Admit Date/Time: 06/16/22 15:53 Primary Reason for Your Visit: Altered mental status Attending Provider: Mary Vegas Primary Care Provider: Herminio Ford Consulting Providers: Anastasiya Horvath Instructions Patient Instructions: AFib Additional Instructions / Restrictions: ? Being transferred on a Cardizem drip for rate control as she was unable to tolerate oral medications for control consistent only and went back into RVR several times ? On IV Keppra, Depakote increased to 500 twice daily from home dose but is gotten this inconsistently due to difficulty waking up enough to tolerate pills. Vimpat IV added. Ultimately can likely continue Depakote and Vimpat with outpatient taper of Keppra. Namenda and donepezil have been held ?Had planned for aspirin 81 mg and Plavix 75 mg for 3 weeks followed by just aspirin versus discussing Eliquis/blood thinner prior to discharge. We will leave to discretion of attending physician ? Atorvastatin 80 mg daily ?Started on prednisone for concern for vasculitis, 60 mg daily started ?Speech recommendations as follows: Textures, thin liquids. Small bites small sips no straws slow rate feed only when alert and sitting upright with hip flexion at 90 degrees and remain sitting upright for 30 minutes after p.o. intake. Further need for skilled speech services 5-7 times a week Discharge Orders/Prescriptions Prescriptions: New atorvastatin 80 mg Tablet 80 mg PO QHS 30 Days Qty: 0 0RF clopidogrel 75 mg Tablet 75 mg PO DAILY 21 Days Qty: 21 0RF aspirin 81 mg Tablet,Chewable 81 mg PO BREAKFAST 30 Days Qty: 0 0RF prednisone 20 mg Tablet 60 mg PO BREAKFAST 30 Days Qty: 0 0RF Continued melatonin 10 mg capsule 10 mg PO HS diphenoxylate-atropine 2.5-0.025 mg tablet 1 tab PO DAILY PRN (Reason: IBS) diphenoxylate-atropine 2.5-0.025 mg tablet 2 tab PO QPM PRN (Reason: IBS) levetiracetam 1,000 mg tablet 1,000 mg PO Q12H Label Comments: TAKE 1 TABLET BY MOUTH EVERY 12 HOURS Changed divalproex 250 mg tablet,delayed release (DR/EC) 500 mg PO BID Qty: 60 0RF Held mirtazapine 15 mg tablet 15 mg PO QHS PRN (Reason: Anxiety) Hold Instructions: Resume on 07/01/22. Difficulty taking oral medications Discontinued donepezil 10 mg tablet 10 mg PO DAILY hydroxyzine HCl 10 MG tablet 10 mg PO DAILY PRN (Reason: Anxiety) Label Comments: ANTICONVULSANT memantine 10 MG tablet 10 mg PO BID Label Comments: anti alzheimer agent No Action omeprazole 20 mg capsule,delayed release(DR/EC) 20 mg PO QODAY Label Comments: TAKE 1 CAPSULE BY MOUTH EVERY OTHER DAY Referrals / Follow Up: Herminio Ford MD [Primary Care Provider] - Disposition Disposition (needs filled in before D/C Order can be placed): [facility]
--- NOTE | 2022-06-21 12:03 | PCM.DC.SUM ---
Providers Date of Admission: 06/16/22 Date of Discharge: 06/21/22 Primary Care Physician: Dr. Herminio Ford MD Reason For Visit: ACUTE CVA, AFIB Diagnosis Discharge Diagnosis (1) Acute stroke due to ischemia: Status: Acute Code(s): I63.9 - Cerebral infarction, unspecified (2) Paroxysmal atrial fibrillation: Status: Chronic Code(s): I48.0 - Paroxysmal atrial fibrillation Plan #Acute ischemic CVA Persistent left-sided deficits CT on admission and repeat after had not revealed a stroke Unfortunately due to CORPORATE CLAIMS EXAMINER shunt being programmable and needing evaluated pre and post MRI we were unable to complete MRI at this facility Given agitation likely would have needed intubated and sedated to complete MRI, spoke with neurology yesterday about options and if transferring to obtain MRI was critical versus repeating CT, repeat CT advised which did show evolving small acute infarct in the pericentral gyrus of the right frontal lobe as well as some brain atrophy and chronic ischemic changes When speaking with neurology yesterday they did recommend aspirin and Plavix for 3 weeks followed by just aspirin, with history of A. fib we discussed anticoagulation but given comorbidities, agitation, dementia risks outweigh the benefits, will also discuss this with family Statin Echo with EF of 40 to 45%, mild mitral valve insufficiency, aortic sclerosis with no stenosis.? It was a technically difficult study because she was combative.? Given stroke now seen on CT Will reorder limited echo to try to assess for any kind of possible thrombus PT/OT/speech #Seizure disorder Reported history of seizure disorder for which she was put on Keppra as an outpatient, this caused agitation so Depakote was added to this regimen which helped but did cause her to sleep often Depakote level on admission with was 54 at random level She was reportedly still having intermittent staring spells, which is how her seizures present, even the Wednesday before admission She was placed on IV Keppra here and oral Depakote though she intermittently has been too tired to take oral medicine EEG on 06/18 showed left temporal sharp waves, left hemispheric slowing, mild generalized background slowing Still only intermittently taking p.o., discussed with neurology and Vimpat started.? Started IV as she was unable to take oral last night Ultimate plan would be Vimpat and Depakote with prolonged taper of Keppra as an outpatient Depakote level this morning low but she was unable to get dose last night, discussed with her nurse best way to try to ensure she is able to tolerate the Depakote #Altered mental status Likely secondary to ischemic CVA and seizure disorder However ESR and CRP are elevated,?? Component of vasculitis Will recontact neurology for recommendations given new finding Shuntogram unremarkable Discussed Abilify/other SGA options to help with agitation and mental status but this was advised against by neurology as this has not been started Melatonin nightly as tolerated Supportive care and environmental interventions Ammonia, B12, TSH have been unremarkable #A. fib with RVR Not on AC given bleeding risk Did not respond to metoprolol when she presented initially and was placed on Cardizem drip Discussed with her nurse that she may become bradycardic if she converts, will monitor this closely. She does become bradycardic or if blood pressure becomes an issue can DC and start on amnio drip #Dementia: on donepezil and memantine at home but is only taking critical meds until further swallow eval improves so these have been held.? 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 Unclear who she currently follows with for this.? Shuntogram unremarkable Medications at Discharge Home Medications melatonin 10 mg capsule 10 mg PO HS SLEEP 01/23/19 mirtazapine 15 mg tablet 15 mg PO QHS PRN Anxiety 01/23/19 diphenoxylate-atropine 2.5 mg-0.025 mg tablet 1 tab PO DAILY PRN IBS 06/16/22 diphenoxylate-atropine 2.5 mg-0.025 mg tablet 2 tab PO QPM PRN IBS 06/16/22 levetiracetam 1,000 mg tablet 1,000 mg PO Q12H SEIZURES 06/16/22 omeprazole 20 mg capsule,delayed release 20 mg PO QODAY GERD 06/16/22 aspirin 81 mg chewable tablet 81 mg PO BREAKFAST 30 days #0 tabs 06/21/22 atorvastatin 80 mg tablet 80 mg PO QHS 30 days #0 tabs 06/21/22 clopidogrel 75 mg tablet 75 mg PO DAILY 21 days #21 tabs 06/21/22 divalproex 250 mg tablet,delayed release 500 mg PO BID SEIZURES #60 tabs 06/21/22 prednisone 20 mg tablet 60 mg PO BREAKFAST 30 days #0 tabs 06/21/22 Hospital Course Procedures Electroencephalogram and Transthoracic echo Summary of Care Provided Minutes Spent on Discharge: 40 Hospital Course: Ms. Keith is an 86-year-old female with a history of seizure disorder on Keppra and Depakote with continued symptoms, NPH with a programmable CORPORATE CLAIM[employer] EX[employer]IN[employer] shunt placed in 2015, dementia, and a fib, who presented to [facility] 06/16 with altered mental status. She been found on the floor 8 AM the day of admission and was a bit confused. Her assumed she had had a seizure as she often does have the staring spell still and he put her back in bed presuming she was postictal. However when she woke up 3 hours later she was reportedly worse and so she was brought in. There had been a questionable history of atrial fibrillation but cardiology had said they did not detect any A. fib so she was only on aspirin and no other anticoagulant. Upon presentation she had left-sided deficit and CT was unrevealing. CORPORATE CLAIM[employer] EXAMINER shunt being programmable and MRI would require pre and post evaluation by onsite neurology so that was unable to be completed. Worked through case in conjunction with teleneurology. Repeat CT did show acute infarct in the pericentral gyrus of the right frontal lobe as well as some brain atrophy and chronic ischemic changes. It was recommended for Plavix and aspirin x3 weeks followed by just aspirin. Has been in A. fib/flutter with RVR but neurology was concern for bleeding risk and therefore recommended the Plavix and aspirin. She did have persistent decreased level of consciousness out of proportion to infarct and was not improving, EEG 06/18 showed left temporal sharp waves, left hemispheric slowing, mild generalized background slowing. Neurology recommended to continue Keppra and Depakote and add Vimpat with ultimate plan for long taper of Keppra on an outpatient basis. It was also recommended to check ESR and CRP to rule out vasculitis. ESR mildly elevated, CRP 140 and the elevation was consistent when repeated. Neurology recommended prednisone and transferring to another facility with onsite neurology so MRI can be obtained and further testing if needed/applicable. During her hospital course she additionally had A. fib/flutter with RVR that was controlled with Cardizem. Given her inconsistent oral intake when she was transition to p.o. medication she would go back into RVR because she would miss doses so she has been maintained on a Cardizem drip. Contacted [facility] and she was accepted for transfer. ? Being transferred on a Cardizem drip for rate control as she was unable to tolerate oral medications for control consistent only and went back into RVR several times ? On IV Keppra, Depakote increased to 500 twice daily from home dose but is gotten this inconsistently due to difficulty waking up enough to tolerate pills.? Vimpat IV added.? Ultimately can likely continue Depakote and Vimpat with outpatient taper of Keppra.? Namenda and donepezil have been held ?Had planned for aspirin 81 mg and Plavix 75 mg for 3 weeks followed by just aspirin versus discussing Eliquis/blood thinner prior to discharge.? We will leave to discretion of attending physician ? Atorvastatin 80 mg daily ?Started on prednisone for concern for vasculitis, 60 mg daily started ?Speech recommendations as follows: Textures, thin liquids.? Small bites small sips no straws slow rate feed only when alert and sitting upright with hip flexion at 90 degrees and remain sitting upright for 30 minutes after p.o. intake.? Further need for skilled speech services 5-7 times a week Physical Exam Const Constitutional Narrative: Would wake up slightly more and open eyes to voice today, minimally interactive but was attempting to cooperate HEENT HEENT Narrative: Slight left-sided lower facial droop Eyes Eyes Narrative: Opened eyes to just voice today Neck supple Resp normal respiratory effort Cardio Cardio Narrative: Irregularly irregular, not tachycardic at time GI soft to palpation and non-distended Extremity Extremity Narrative: Moves both lower extremities and right upper extremity, minimal movement in left upper extremity Neuro Neuro Narrative: When asked to do things with left hand she will do them with her right hand, minimal movement in left upper extremity and lower left-sided facial droop but moving other extremities at this time Psych Psych Narrative: Attempts to be more cooperative with exam today Medical Records Data Medical Nutrition Assessment Dietitian: Malnutrition Criteria Met Start: 06/17/22 15:45 Freq: Status: Active Protocol: Document 06/17/22 15:45 (Rec: 06/17/22 15:45 AG [id number]) Nutrition Malnutrition Evidence of Malnutrition Exists Yes Malnutrition (severe): Chronic Evidenced By Suboptimal Energy Intake ( Severe),Weight Loss (Severe) Clinical Problem Chronic Disease or Condition Related Malnutrition Etiology severe, chronic malnutrition related to inadequate oral intake d/t dementia Signs/Symptoms as evidenced by unintentional wt loss of 16.2#/10% x 2 months; estimated PO intake meeting <75% of estimated energy needs x 2 months; Mild muscle wasting/fat loss evident in orbital, clavicle, acromion, and temporal areas. Status Active Problem Recommendation Dietitian Recommendations/Changes regular diet as tolerated- texture/consistency per [employer] SW[employer]MER; will fortify foods and try magic cup w/ meals when diet advanced as family does not think pt will be accepting of ONS Weight / BMI Weight Weight: 62.959 kg Body Mass Index (BMI) 21.7 ABG / Lab / Microbiology Data Result Diagrams: 06/21/22 05:05 06/21/22 05:05 Laboratory: Laboratory Results - last 24 hr 06/20/22 17:55: ESR 38 H 06/20/22 17:55: C-React Prot Ext Range 140.00 H 06/21/22 05:05: WBC 7.8, RBC 4.25, Hgb 13.1, Hct 39.8, MCV 93.6, MCH 30.8, MCHC 32.9, RDW Std Deviation 45.4 H, RDW Coeff of Karon 13.4, Plt Count 293, MPV 11.4, Immature Gran % (Auto) 0.800, Neut % (Auto) 87.3 H, Lymph % (Auto) 7.0 L, [place] % (Auto) 4.8, Eos % (Auto) 0.0, Baso % (Auto) 0.1, Absolute Neuts (auto) 6.8, Absolute Lymphs (auto) 0.54 L, Nucleated RBC % 0, Differential Comment SCANNED 06/21/22 05:05: Sodium 140, Potassium 3.6, Chloride 108 H, Carbon Dioxide 20.0 L, Anion Gap 12, BUN 16, Creatinine 0.70, Estim Creat Clear Calc 40.72, Est GFR (MDRD) Af Amer 103, Est GFR (MDRD) Non-Af 85, BUN/Creatinine Ratio 22.9 H, Glucose 138 H, Calcium 8.9, Total Bilirubin 0.50, AST 12 L, ALT 16, Alkaline Phosphatase 62, C-React Prot Ext Range 139.00 H, Total Protein 6.7, Albumin 2.7 L, Globulin 4.0, Albumin/Globulin Ratio 0.7 L Microbiology: Microbiology 06/20/22 01:55 Urine Catheter - Catheter Urine Culture - Preliminary GNR lactose custom grinder 06/21/22 10:45 Nasal Secretion SARS-CoV-2 Antigen (Rapid) - Final Radiography Diagnostic Testing: Radiology Impression Echocardiogram 06/20/22 09:12 Interpretation Summary Mild (1+) aortic valve insufficiency. Mild-Moderate (1-2+) mitral valve insufficiency. Mild to moderate (1-2+) tricuspid valve insufficiency. The left ventricular ejection fraction is 40 %. Ordering Physician: Mary Vegas Referring Physician: Herminio Ford Performed By: Jenny Nugent, JUSTYN, RVT D/C Instructions Discharge Diet: - (. Textures, thin liquids. Small bites small sips no straws slow rate feed only when alert and sitting upright with hip flexion at 90 degrees and remain sitting upright for 30 minutes after p.o. intake. Further need for skilled speech services 5-7 times a week) Meaningful Use Info Meaningful Use Diagnoses (Choose all that apply): Ischemic CVA CVA Therapy Assessed for PT,OT and/or ST?: Yes Ischemic Stroke Antithrombotic order at d/c?: Yes Dx of Atrial fib/flutter?: Yes Anticoagulant at discharge?: No Reason anticoagulant not ordered: Medical Contraindication Statins at discharge?: Yes Primary Dx Acute Ischemic CVA?: Yes IV tPA ordered during stay?: No Reason IV t-PA not ordered: Treatment not Indicated Discharge Plan Admission Admit Date/Time: 06/16/22 15:53 Primary Reason for Your Visit: Altered mental status Attending Provider: Mary Vegas Primary Care Provider: Herminio Ford Consulting Providers: Anastasiya Horvath Instructions Patient Instructions: AFib Additional Instructions / Restrictions: ? Being transferred on a Cardizem drip for rate control as she was unable to tolerate oral medications for control consistent only and went back into RVR several times ? On IV Keppra, Depakote increased to 500 twice daily from home dose but is gotten this inconsistently due to difficulty waking up enough to tolerate pills. Vimpat IV added. Ultimately can likely continue Depakote and Vimpat with outpatient taper of Keppra. Namenda and donepezil have been held ?Had planned for aspirin 81 mg and Plavix 75 mg for 3 weeks followed by just aspirin versus discussing Eliquis/blood thinner prior to discharge. We will leave to discretion of attending physician ? Atorvastatin 80 mg daily ?Started on prednisone for concern for vasculitis, 60 mg daily started ?Speech recommendations as follows: Textures, thin liquids. Small bites small sips no straws slow rate feed only when alert and sitting upright with hip flexion at 90 degrees and remain sitting upright for 30 minutes after p.o. intake. Further need for skilled speech services 5-7 times a week Discharge Orders/Prescriptions Prescriptions: New atorvastatin 80 mg Tablet 80 mg PO QHS 30 Days Qty: 0 0RF clopidogrel 75 mg Tablet 75 mg PO DAILY 21 Days Qty: 21 0RF aspirin 81 mg Tablet,Chewable 81 mg PO BREAKFAST 30 Days Qty: 0 0RF prednisone 20 mg Tablet 60 mg PO BREAKFAST 30 Days Qty: 0 0RF Continued melatonin 10 mg capsule 10 mg PO HS diphenoxylate-atropine 2.5-0.025 mg tablet 1 tab PO DAILY PRN (Reason: IBS) diphenoxylate-atropine 2.5-0.025 mg tablet 2 tab PO QPM PRN (Reason: IBS) levetiracetam 1,000 mg tablet 1,000 mg PO Q12H Label Comments: TAKE 1 TABLET BY MOUTH EVERY 12 HOURS Changed divalproex 250 mg tablet,delayed release (DR/EC) 500 mg PO BID Qty: 60 0RF Held mirtazapine 15 mg tablet 15 mg PO QHS PRN (Reason: Anxiety) Hold Instructions: Resume on 07/01/22. Difficulty taking oral medications Discontinued donepezil 10 mg tablet 10 mg PO DAILY hydroxyzine HCl 10 MG tablet 10 mg PO DAILY PRN (Reason: Anxiety) Label Comments: ANTICONVULSANT memantine 10 MG tablet 10 mg PO BID Label Comments: anti alzheimer agent No Action omeprazole 20 mg capsule,delayed release(DR/EC) 20 mg PO QODAY Label Comments: TAKE 1 CAPSULE BY MOUTH EVERY OTHER DAY Referrals / Follow Up: Herminio Ford MD [Primary Care Provider] - Disposition Disposition (needs filled in before D/C Order can be placed): Acute Care Hospital Charges/Coding Visit Charges Inpatient E&M: 23626 Disch Hosp
[2022-06-21] MEDS: predniSONE 20 MG Tablet 60 MG PO (12:34)
[2022-06-23 15:51] LABS: ANTINUCLEAR ANTIBODIES DIRECT Negative (Negative)
[2022-06-24 16:09] LABS: Alpha-1-Globulins 0.5 g/dL (0.0-0.4); Alpha-2-Globulins 0.9 g/dL (0.4-1.0); Cytoplasmic Ab (C-ANCA) <1:20 titer (Neg:<1:20); Gamma Globulin 0.9 g/dL (0.4-1.8); Immunoglobulin A 132 mg/dL (64-422); Immunoglobulin G 867 mg/dL (586-1602); Immunoglobulin M 76 mg/dL (26-217); PROEL- TOTAL PROTEIN 6.2 g/dL (6.0-8.5); PROELU- Albumin, Urine 36.8 % (.); PROELU- Alpha-1-Globulin,Ur 2.9 % (.); PROELU- Alpha-2-Globulin,Ur 26.9 % (.); PROELU- Gamma Globulin, Ur 15.4 % (.)
[2022-06-24 16:48] LABS: Complement C3 152 mg/dL (82-167)
[2022-06-24 16:49] LABS: Perinuclear Ab (P-ANCA) <1:20 titer (Neg:<1:20)
== END 2022-06-21 13:52 | disposition short-term general hospital (02) | DRG 64 ==
LOC: ED 15:31 → PCU 16:05
PROVIDERS: Family Medicine; Admitting Provider Student in an Organized Health Care Education/Training Program; Emergency Provider Emergency Medicine; PCP Family Medicine; Visit Provider Internal Medicine
DX: I63.9 Cerebral infarction, unspecified (principal); E43 Unspecified severe protein-calorie malnutrition; G91.2 (Idiopathic) normal pressure hydrocephalus; G81.94 Hemiplegia, unspecified affecting left nondominant side; F02.80 Dementia in other diseases classified elsewhere, unspecified severity, without behavioral disturbance, psychotic disturbance, mood disturbance, and anxiety; G30.9 Alzheimer's disease, unspecified; I48.0 Paroxysmal atrial fibrillation; G40.909 Epilepsy, unspecified, not intractable, without status epilepticus; I70.0 Atherosclerosis of aorta; R47.01 Aphasia; E78.00 Pure hypercholesterolemia, unspecified; I34.0 Nonrheumatic mitral (valve) insufficiency; K21.9 Gastro-esophageal reflux disease without esophagitis; R29.810 Facial weakness; R29.705 NIHSS score 5; R41.0 Disorientation, unspecified; Z68.21 Body mass index [BMI] 21.0-21.9, adult; Z98.2 Presence of cerebrospinal fluid drainage device; Z66 Do not resuscitate; Z20.822 Contact with and (suspected) exposure to COVID-19; Z79.82 Long term (current) use of aspirin; Z79.899 Other long term (current) drug therapy; Z96.641 Presence of right artificial hip joint
CPT/HCPCS: 36415; 70450; 70496; 70498; 71045; 75809; 80048; 80053; 80061; 80164; 81001; 82140; 82607; 82784; 83605; 83735; 84165; 84166; 84443; 84484; 85025; 85610; 85652; 85730; 86038; 86140; 86160; 86225; 86235; 86256; 86334; 87077; 87086; 87088; 87186; 87426; 92507; 92526; 92610; 93005; 93306; 93308; 94762; 95819; 97110; 97162; 97167; 97530; 97535; 97802; 99285; J7030; J7050; Q9967; A4216; C9254; J3490